=== PATIENT | male | born 1950 | race Caucasian/White ===

== ENCOUNTER 2019-02-23 10:03 | Emergency (ER) | payer BC, OTHER ==
--- OUTSIDE RECORDS SUMMARY | 2019-02-23 10:05 | XMS REPORT | Clinical Summary ---
:[address] [facility] Address [address] [place] [address] Care Team Providers Name Role Phone Neal Claros MD Primary Care Provider Allergies No Known Allergies Medications Medication Sig Dispensed Refills Start End Date Status Date levothyroxine Take 75 mcg by 0 Active (SYNTHROID, mouth Every morning LEVOTHROID) 75 MCG on an empty tabletIndications: stomach. Cirrhosis of liver without ascites, unspecified hepatic cirrhosis type (HCC), Fatty liver disease, nonalcoholic, Morbid obesity due to excess calories (HCC), Metabolic syndrome, Essential hypertension, Type 2 diabetes mellitus without complication, without long-term current use of insulin (HCC), Immunity status testing, Cancer screening losartan (COZAAR) Take 50 mg by mouth 0 Active 50 MG daily. tabletIndications: Cirrhosis of liver without ascites, unspecified hepatic cirrhosis type (HCC), Fatty liver disease, nonalcoholic, Morbid obesity due to excess calories (HCC), Metabolic syndrome, Essential hypertension, Type 2 diabetes mellitus without complication, without long-term current use of insulin (HCC), Immunity status testing, Cancer screening pantoprazole Take 40 mg by mouth 0 Active (PROTONIX) 40 MG daily . tabletIndications: Cirrhosis of liver without ascites, unspecified hepatic cirrhosis type (HCC), Fatty liver disease, nonalcoholic, Morbid obesity due to excess calories (HCC), Metabolic syndrome, Essential hypertension, Type 2 diabetes mellitus without complication, without long-term current use of insulin (HCC), Immunity status testing, Cancer screening acetaminophen Take 650 mg by 0 Active (TYLENOL) 325 MG mouth every 6 (six) tablet hours as needed for Pain. metFORMIN Take 500 mg by 0 Active (GLUCOPHAGE) 500 mouth 2 (two) times MG tablet daily with breakfast and dinner. atenolol 0 Active (TENORMIN) 100 MG 8 tablet atenolol Take 50 mg by mouth 0 05/26/20 Discontinued (TENORMIN) 50 MG daily. 18 tabletIndications: Cirrhosis of liver without ascites, unspecified hepatic cirrhosis type (HCC), Fatty liver disease, nonalcoholic, Morbid obesity due to excess calories (HCC), Metabolic syndrome, Essential hypertension, Type 2 diabetes mellitus without complication, without long-term current use of insulin (HCC), Immunity status testing, Cancer screening propranolol Take 20 mg by mouth 0 05/26/20 Discontinued (INDERAL) 20 MG daily . 18 tabletIndications: Cirrhosis of liver without ascites, unspecified hepatic cirrhosis type (HCC), Fatty liver disease, nonalcoholic, Morbid obesity due to excess calories (HCC), Metabolic syndrome, Essential hypertension, Type 2 diabetes mellitus without complication, without long-term current use of insulin (HCC), Immunity status testing, Cancer screening hepatitis A and B Inject 1 Syringe 1 vial 2 05/26/20 Discontinued vaccine, PF, 720 intramuscularly 8 18 Ermias unit -20 once for 1 dose At mcg/mL 0, 1, and 6 months. SuspIndications: Alcoholic cirrhosis of liver without ascites (HCC), Morbid obesity due to excess calories (HCC), Fatty liver disease, nonalcoholic, Cancer screening hepatitis A and B Inject 1 Syringe 1 vial 2 05/26/20 vaccine, PF, 720 intramuscularly 8 18 ERMIAS unit- 20 once for 1 dose At mcg/mL 0, 1, and 6 months. SuspIndications: Alcoholic cirrhosis of liver without ascites (HCC), Morbid obesity due to excess calories (HCC), Fatty liver disease, nonalcoholic, Cancer screening Active Problems Problem Noted Date Alcohol use 11/19/2018 Cirrhosis of liver without ascites 03/12/2017 Fatty liver disease, nonalcoholic 03/12/2017 Morbid obesity due to excess calories 03/12/2017 Metabolic syndrome 03/12/2017 Essential hypertension 03/12/2017 Type 2 diabetes mellitus 03/12/2017 Immunity status testing 03/12/2017 Cancer screening 03/12/2017 Encounters Date Type Specialty Care Team Description 12/09/2018 Hospital Encounter Radiology Megan Clark Kumar, MD non-alcoholic (HCC) 11/19/2018 Office Visit Hepatology Miguelangel Clarkun Cirrhosis, non-alcoholic ( HCC) (Primary Dx); MD Ariel Fatty liver disease, nonalcoholic; David Tsai Alcoholic cirrhosis of liver without ascites (HCC); ELIZABETH Bhatt Morbid obesity due to excess calories (HCC); Metabolic syndrome; Immunity status testing; Cancer screening; Alcohol use 06/23/2018 Hospital Encounter Radiology Megan Clark Cirrhosis, non- alcoholic (HCC); MD Ariel Fatty liver disease, nonalcoholic; Cancer screening; Metabolic syndrome 06/23/2018 Hospital Encounter Radiology Megan Clark Discomfort of chest wall; MD Ariel Cirrhosis of liver without ascites, unspecified hepatic cirrhosis type (HCC) 05/26/2018 Office Visit Hepatology EduardoMegan Cirrhosis of liver without ascites, unspecified hepatic cirrhosis type (HCC) (Primary Dx); MD Ariel Discomfort of chest wall; Reva Canales Portal hypertension (HCC); ANSELMO Bright Screening for cancer 05/26/2018 Orders Only Transplant Megan Clark Alcoholic cirrhosis of liver without ascites (HCC); Hepatology MD Ariel Morbid obesity due to excess calories (HCC); Fatty liver disease, nonalcoholic; Cancer screening 05/26/2018 Orders Only Hepatology Reva Canales Cirrhosis, non-alcoholic ( HCC) (Primary Dx); ANSELMO Bright Fatty liver disease, nonalcoholic; Cancer screening; Metabolic syndrome; Alcoholic cirrhosis of liver without ascites (HCC); Morbid obesity due to excess calories (HCC) after 02/22/2018 Family History Medical History Relation Name Comments Cancer Father Colon Diabetes Father Heart failure Father Hypertension Mother Relation Name Status Comments Father Mother Social History Tobacco Use Types Packs/Day Years Used Date Never Smoker Smokeless Tobacco: Never Used Alcohol Use Drinks/Week oz/Week Comments No Sex Assigned at Date Recorded Not on file Job Start Date Occupation Industry Not on file Not on file Not on file Travel History Travel Start Travel End No recent travel history available. Last Filed Vital Signs Vital Sign Reading Time Taken Blood Pressure 116/71 11/19/2018 12:25 PM CDT Pulse 75 11/19/2018 12:25 PM CDT Temperature 36.8 C (98.3 F) 11/19/2018 12:25 PM CDT Respiratory Rate 14 11/19/2018 12:25 PM CDT Oxygen Saturation 97% 11/19/2018 12:25 PM CDT Inhaled Oxygen Concentration - - Weight 144.2 kg (317 lb 12.8 oz) 11/19/2018 12:25 PM CDT Height 188 cm (6' 2") 11/19/2018 12:25 PM CDT Body Mass Index 40.8 11/19/2018 12:25 PM CDT Plan of Treatment Date Type Specialty Care Team Description 05/24/2019 Office Visit Hepatology Resource, [facility] E Implants Implanted Type Area Telephone Service Representative Device Shelf Expiration Model / Identifier Date Serial / Lot Micronester Embolization Coil [employer] 11/27/2021 / Implanted: Qty: 1 on 05/07/2017 by Adal Martin MD [id number] / [id number] Micronester Embolization Coil [employer] 11/27/2021 / Implanted: Qty: 1 on 05/07/2017 by Adal Martin MD [id number] / [id number] [employer]ronester Embolization Coil [employer] 01/22/2022 / Implanted: Qty: 1 on 05/07/2017 by Adal Martin MD [id number] / [id number] [employer]ester Embolization Coil [employer] 01/13/2022 / Implanted: Qty: 1 on 05/07/2017 by Adal Martin MD [id number] / [id number] Procedures Procedure Name Priority Date/Time Associated Comments Diagnosis CT ABDOMEN Routine 12/09/2018 9:03 Cirrhosis, Results for this WITH/WITHOUT CONTRAST AM CDT non-alcoholic (HCC) procedure are in the results section. CBC W/PLT COUNT & Routine 11/19/2018 1:09 Cirrhosis, Results for this AUTO DIFFERENTIAL PM CDT non-alcoholic (HCC) procedure are in the results section. ALPHA FETOPROTEIN Routine 11/19/2018 1:09 Cirrhosis, Results for this (AFP), TUMOR MARKER PM CDT non-alcoholic (HCC) procedure are in the results section. PROTHROMBIN TIME/INR Routine 11/19/2018 1:09 Cirrhosis, Results for this PM CDT non-alcoholic (HCC) procedure are in the results section. CBC W/PLT COUNT & Routine 11/19/2018 1:09 Cirrhosis, Results for this AUTO DIFFERENTIAL PM CDT non-alcoholic (HCC) procedure are in the results section. HEPATIC FUNCTION Routine 11/19/2018 1:09 Cirrhosis, Results for this PANEL PM CDT non-alcoholic (HCC) procedure are in the results section. BASIC METABOLIC PANEL Routine 11/19/2018 1:09 Cirrhosis, Results for this (7) PM CDT non-alcoholic (HCC) procedure are in the results section. CT CHEST WITH IV Routine 06/23/2018 12:00 Results for this CONTRAST PM RESEARCH SUBJECT procedure are in the results section. CT ABDOMEN Routine 06/23/2018 12:00 Cirrhosis, Results for this WITH/WITHOUT CONTRAST PM RESEARCH SUBJECT non-alcoholic (HCC) procedure are in Fatty liver the results disease, section. nonalcoholic Cancer screening Metabolic syndrome POCT-CREATININE Routine 06/23/2018 11:52 Results for this AM RESEARCH SUBJECT procedure are in the results section. CBC W/PLT COUNT & Routine 05/26/2018 11:08 Alcoholic cirrhosis Results for this AUTO DIFFERENTIAL AM RESEARCH SUBJECT of liver without procedure are in ascites (HCC) the results Morbid obesity due section. to excess calories (HCC) Fatty liver disease, nonalcoholic Cancer screening ALPHA FETOPROTEIN Routine 05/26/2018 11:08 Alcoholic cirrhosis Results for this (AFP), TUMOR MARKER AM RESEARCH SUBJECT of liver without procedure are in ascites (HCC) the results Morbid obesity due section. to excess calories (HCC) Fatty liver disease, nonalcoholic Cancer screening PROTHROMBIN TIME/INR Routine 05/26/2018 11:08 Alcoholic cirrhosis Results for this AM RESEARCH SUBJECT of liver without procedure are in ascites (HCC) the results Morbid obesity due section. to excess calories (HCC) Fatty liver disease, nonalcoholic Cancer screening CBC W/PLT COUNT & Routine 05/26/2018 11:08 Alcoholic cirrhosis Results for this AUTO DIFFERENTIAL AM RESEARCH SUBJECT of liver without procedure are in ascites (HCC) the results Morbid obesity due section. to excess calories (HCC) Fatty liver disease, nonalcoholic Cancer screening HEPATIC FUNCTION Routine 05/26/2018 11:08 Alcoholic cirrhosis Results for this PANEL AM RESEARCH SUBJECT of liver without procedure are in ascites (HCC) the results Morbid obesity due section. to excess calories (HCC) Fatty liver disease, nonalcoholic Cancer screening BASIC METABOLIC PANEL Routine 05/26/2018 11:08 Alcoholic cirrhosis Results for this (7) AM RESEARCH SUBJECT of liver without procedure are in ascites (HCC) the results Morbid obesity due section. to excess calories (HCC) Fatty liver disease, nonalcoholic Cancer screening after 02/22/[address] abdomen with/without contrast (12/09/2018 9:03 AM CDT)Only the most recent of2 resultswithin the time period is included. Specimen Narrative Performed At FINAL REPORT RIS ABDOMINAL AND PELVIS CT DATED 12/09/2018 COMPARISON: June 23, 2018 CLINICAL INFORMATION:cirrhosis assess for HCC TECHNIQUE:Axial images of the abdomen and pelvis were obtained from diaphragm to the pubic symphysis with and without intravenous contrast. This exam was performed according to our departmental dose-optimization program, which includes automated exposure control, adjustment of the mA and/or kV according to patient size and/or use of interactive reconstruction technique. COMMENT: Liver is cirrhotic in appearance with irregular margins. No abnormal enhancement or suspicious mass is seen in the liver. Spleen is enlarged measuring 14.3 x 7.2 x 12 cm. The splenic, superior mesenteric, portal, and hepatic veins are patent. Main portal vein measures 1.6 cm in diameter. Enlarged collateral veins are seen in the splenic hilum. Paraesophageal varices and splenorenal shunts are seen. Gallbladder is surgically absent. No biliary dilatation is noted. Pancreas and adrenals are unremarkable. Both kidneys are normal in size and functioning with bilateral excretion. No hydronephrosis, hydroureter, urolithiasis is seen. The small and large bowel are unremarkable. Appendix is noted visualized. Periumbilical ventral hernia is present with herniation a segment of the omentum. No mass, adenopathy or ascites is present. IMPRESSION: 1. Cirrhosis with splenomegaly and portal hypertension. 2. No suspicious hepatic mass. 3. Periumbilical ventral hernia with herniation a segment of the omentum. Signed: Rufina Hart MD Report Verified Date/Time:12/09/2018 09:48:18 Reading Location: [facility] C013Y CT Body Reading Room Procedure Note Interface, External Ris In - 12/09/2018 9:50 AM CDT FINAL REPORT ABDOMINAL AND PELVIS CT DATED 12/09/2018 COMPARISON: June 23, 2018 CLINICAL INFORMATION: cirrhosis assess for HCC TECHNIQUE: Axial images of the abdomen and pelvis were obtained from diaphragm to the pubic symphysis with and without intravenous contrast. This exam was performed according to our departmental dose-optimization program, which includes automated exposure control, adjustment of the mA and/or kV according to patient size and/or use of interactive reconstruction technique. COMMENT: Liver is cirrhotic in appearance with irregular margins. No abnormal enhancement or suspicious mass is seen in the liver. Spleen is enlarged measuring 14.3 x 7.2 x 12 cm. The splenic, superior mesenteric, portal, and hepatic veins are patent. Main portal vein measures 1.6 cm in diameter. Enlarged collateral veins are seen in the splenic hilum. Paraesophageal varices and splenorenal shunts are seen. Gallbladder is surgically absent. No biliary dilatation is noted. Pancreas and adrenals are unremarkable. Both kidneys are normal in size and functioning with bilateral excretion. No hydronephrosis, hydroureter, urolithiasis is seen. The small and large bowel are unremarkable. Appendix is noted visualized. Periumbilical ventral hernia is present with herniation a segment of the omentum. No mass, adenopathy or ascites is present. IMPRESSION: 1. Cirrhosis with splenomegaly and portal hypertension. 2. No suspicious hepatic mass. 3. Periumbilical ventral hernia with herniation a segment of the omentum. Signed: Rufina Hart MD Report Verified Date/Time: 12/09/2018 09:48:18 Reading Location: [facility] B1 C013Y CT Body Reading Room Performing Organization Address City/State/Zipcode Phone Number [facility] CBC with platelet count + automated diff (11/19/2018 1:09 PM CDT)Only the most recent of2 resultswithin the time period is included. WBC 4.5 3.5 - 10.5 K/L [facility] RBC 3.82 (L) 4.63 - 6.08 M/L [facility] Hemoglobin 14.4 13.7 - 17.5 GM/DL [facility] Hematocrit 41.2 40.1 - 51.0 % [facility] MCV 107.9 (H) 79.0 - 92.2 fL [facility] MCH 37.7 (H) 25.7 - 32.2 pg [facility] MCHC 35.0 32.3 - 36.5 GM/DL [facility] RDW 12.7 11.6 - 14.4 % [facility] Platelets 92 (L) 150 - 450 K/CU MM [facility] MPV 10.0 9.4 - 12.4 fL [facility] nRBC 0 0 - 0 /100 WBC [facility] % Neutros 65 % [facility] % Lymphs 22 % [facility] % Monos 9 % [facility] % Eos 4 % [facility] % Baso 1 % [facility] # Neutros 2.91 1.78 - 5.38 K/L [facility] # Lymphs 0.99 (L) 1.32 - 3.57 K/L [facility] # Monos 0.39 0.30 - 0.82 K/L [facility] # Eos 0.17 0.04 - 0.54 K/L [facility] # Baso 0.03 0.01 - 0.08 K/L [facility] Immature 0 0 - 1 % [facility] Specimen Blood Performing Organization Address City/State/Zipcode Phone Number [address] [address] CENTER Alpha fetoprotein (AFP), tumor marker (11/19/2018 1:09 PM CDT)Only the most recent of2 resultswithin the time period is included. Alpha-Fetoprotein 7.5 <10.0 ng/mL [facility] Specimen Blood Performing Organization Address City/State/Zipcode Phone Number [address] [address] CENTER Pro-time/INR (11/19/2018 1:09 PM CDT)Only the most recent of2 resultswithin the time period is included. Protime 15.4 (H) 11.7 - 14.7 seconds [facility] INR 1.3 <=5.9 [facility] Specimen Blood Narrative Performed At RECOMMENDED COUMADIN/WARFARIN INR THERAPY [facility] RANGES STANDARD DOSE: 2.0 - 3.0 Includes: PROPHYLAXIS for venous thrombosis, systemic embolization; TREATMENT for venous thrombosis and/or pulmonary embolus. HIGH RISK: Target INR is 2.5-3.5 for patients with mechanical heart valves. Performing Organization Address [facility] Phone Number [address] [address] [place] Hepatic function panel (11/19/2018 1:09 PM CDT)Only the most recent of2 resultswithin the time period is included. Protein, Total 7.6 6.0 - 8.3 gm/dL [facility] Albumin 3.5 3.5 - 5.0 g/dL [facility] Total Bilirubin 2.1 (H) 0.2 - 1.2 mg/dL [facility] Bilirubin, Direct 0.8 (H) 0.1 - 0.5 mg/dL [facility] Alkaline Phosphatase 103 40 - 150 U/L [facility] AST 27 5 - 34 U/L [facility] ALT 21 6 - 55 U/L [facility] Specimen Blood Narrative Performed At Specimen slightly icteric [facility] Performing Organization Address City/[facility]/Zipcode Phone Number [facility] [address] [place] [phone] CENTER Basic Metabolic Panel (11/19/2018 1:09 PM CDT)Only the most recent of2 resultswithin the time period is included. Sodium 137 136 - 145 meq/L [facility] Potassium 4.1 3.5 - 5.1 meq/L [facility] Chloride 104 98 - 107 meq/L [facility] CO2 26 22 - 29 meq/L [facility] BUN 14 7 - 21 mg/dL [facility] Creatinine 1.20 0.57 - 1.25 mg/dL [facility] Glucose 324 (H) 70 - 105 mg/dL [facility] Calcium 9.3 8.4 - 10.2 mg/dL [facility] EGFR 61Comment: ESTIMATED GFR IS mL/min/1.73 sq m [facility] NOT ACCURATE CREATININE [facility] CENTER CLEARANCE IN PREDICTING GLOMERULAR FILTRATION RATE. ESTIMATED GFR IS NOT APPLICABLE FOR DIALYSIS PATIENTS. Specimen Blood Narrative Performed At Specimen slightly icteric [facility] Performing Organization Address City/State/Zipcode Phone Number [facility] [address] [place] [address] chest with IV contrast (06/23/2018 12:00 PM RESEARCH SUBJECT) Specimen Narrative Performed At FINAL REPORT [employer] INDICATION: 68-year-old male with chest pain and upper back pain. Patient also has a history of cirrhosis, surveillance for hepatocellular carcinoma. COMPARISON: Abdomen MR exams September 25, 2017 and March 12, 2017 TECHNIQUE: CT of the Chest WITH intravenous contrast. CT of the Abdomen WITHOUT and WITH intravenous contrast. Enteric contrast was not used. The exam was performed according to our department dose-optimization protocol, which includes automated exposure control, adjustments of mA and kV according to patient size. Iterative reconstructions are also sometimes employed. FINDINGS: THORAX: There is no mediastinal, hilar, or axillary lymphadenopathy. No suspicious pulmonary nodule or mass is demonstrated. No pleural effusion or suspicious pleural nodularity. Heart is normal in size and there is no pericardial effusion. Thyroid gland and esophagus are unremarkable. ABDOMEN: The liver is cirrhotic. No liver mass is demonstrated. No portal vein, superior mesenteric vein, or splenic vein thrombosis is demonstrated. There are large varices between the fundus and the medial pole of the spleen communicating with the left renal vein, splenorenal shunt. Smaller lower esophageal varices are also noted. There is no ascites. Spleen measures 16 cm coronal long axis. There is no upper abdominal lymphadenopathy or free fluid. Patient is status post cholecystectomy. There is no biliary ductal dilatation. Pancreas, adrenal glands, and kidneys are unremarkable. Diverticuli of the distal left colon noted, bowel loops otherwise unremarkable. There is a periumbilical fat-containing hernia with the fascial defect measuring 2 cm and the hernia itself measuring 7 cm. BONES: No suspicious osseous lesion is demonstrated. There is lumbar spondylosis including lower lumbar spinal stenosis. There is no compression fracture. IMPRESSION: No acute abnormality of the thorax. Specifically, no thoracic compression fracture. Cirrhosis without evidence of hepatocellular carcinoma. Large fat-containing periumbilical hernia. Lumbar spondylosis including lower lumbar spinal stenosis. Signed: Kennedy Tavares MD Report Verified Date/Time:06/23/2018 14:26:12 Reading Location: [address] Body Reading Room Procedure Note Interface, External Ris In - 06/23/2018 2:28 PM RESEARCH SUBJECT FINAL REPORT INDICATION: 68-year-old male with chest pain and upper back pain. Patient also has a history of cirrhosis, surveillance for hepatocellular carcinoma. COMPARISON: Abdomen MR exams September 25, 2017 and March 12, 2017 TECHNIQUE: CT of the Chest WITH intravenous contrast. CT of the Abdomen WITHOUT and WITH intravenous contrast. Enteric contrast was not used. The exam was performed according to our department dose-optimization protocol, which includes automated exposure control, adjustments of mA and kV according to patient size. Iterative reconstructions are also sometimes employed. FINDINGS: THORAX: There is no mediastinal, hilar, or axillary lymphadenopathy. No suspicious pulmonary nodule or mass is demonstrated. No pleural effusion or suspicious pleural nodularity. Heart is normal in size and there is no pericardial effusion. Thyroid gland and esophagus are unremarkable. ABDOMEN: The liver is cirrhotic. No liver mass is demonstrated. No portal vein, superior mesenteric vein, or splenic vein thrombosis is demonstrated. There are large varices between the fundus and the medial pole of the spleen communicating with the left renal vein, splenorenal shunt. Smaller lower esophageal varices are also noted. There is no ascites. Spleen measures 16 cm coronal long axis. There is no upper abdominal lymphadenopathy or free fluid. Patient is status post cholecystectomy. There is no biliary ductal dilatation. Pancreas, adrenal glands, and kidneys are unremarkable. Diverticuli of the distal left colon noted, bowel loops otherwise unremarkable. There is a periumbilical fat-containing hernia with the fascial defect measuring 2 cm and the hernia itself measuring 7 cm. BONES: No suspicious osseous lesion is demonstrated. There is lumbar spondylosis including lower lumbar spinal stenosis. There is no compression fracture. IMPRESSION: No acute abnormality of the thorax. Specifically, no thoracic compression fracture. Cirrhosis without evidence of hepatocellular carcinoma. Large fat-containing periumbilical hernia. Lumbar spondylosis including lower lumbar spinal stenosis. Signed: Kennedy Tavares MD Report Verified Date/Time: 06/23/2018 14:26:12 Reading Location: [facility] C013Y CT Body Reading Room Performing Organization Address City/State/Zipcode Phone Number [facility] POC-Creatinine (06/23/2018 11:52 AM RESEARCH SUBJECT) POC-Creatinine 0.9Comment: TESTED AT 0.6 - 1.3 mg/dL [facility] [id number] [facility] [id number] POC-EGFR 84 mL/min/1.73M2 [facility] Specimen Blood Performing Organization Address City/State/Zipcode Phone Number [facility] [address] [place] [address] [phone] CENTER after 02/22/2018 Insurance Payer Benefit Plan / Subscriber ID Type Phone Address Group BLUE CROSS/[employer]UE [employer] FED xxxxxxxxx O [phone] [address] [place] [address]
--- NOTE | 2019-02-23 11:08 | RAD REPORT ---
EXAM DESCRIPTION: RAD - Tib Fib Right - 02/23/2019 11:00 am CLINICAL HISTORY: Persistent right leg pain following trauma a few weeks earlier COMPARISON: None. FINDINGS: No fracture is identified. There is no dislocation or periosteal reaction noted. No acute destructive bone process identified. Degenerative changes are present and the ankle joint the patient has small spurs at the plantar and Achilles tendon attachments. Spurs are present at the quadriceps attachment to the patella and the origin of the patella tendon. No significant knee joint finding see n on plain film. Subcutaneous fatty tissues are edematous along the lateral to anterior tissues proximally and circumf erential edema seen near the ankle. Baseline the patient is unknown. No air or foreign body in the soft tissues. IMPRESSION: No acute bone findings seen. Patient has degenerative change at the ankle joint. Prominent subcutaneous fatty tissue edema with baseline for the patient unknown. No air or foreign julisa dy seen.
--- NOTE | 2019-02-23 11:47 | RAD REPORT ---
EXAM DESCRIPTION: US - Extremity Venous Uni Ltd - 02/23/2019 11:11 am CLINICAL HISTORY: Right leg pain and swelling COMPARISON: February 18 TECHNIQUE: Real-time sonographic evaluation of the right lower extremity deep venous systems was per formed. FINDINGS: Normal compressibility, flow augmentation, phasic flow and spontaneous flow are identified in the right lower extremity common femoral, superficial femoral, popliteal and posterior tibial vei ns. No intraluminal filling defects seen. IMPRESSION: No DVT in the right lower extremity.
--- NOTE | 2019-02-23 11:51 | ER ---
Nurse's Notes [facility] Name: Solo Lin Jr Age: 69 yrs Sex: Male : 1950 Arrival Date: 02/23/2019 Time: 10:07 Bed 7 Private MD: Neal Claros T Diagnosis: Pain in right lower leg Presentation: 02/23 10:22 Presenting complaint: Presenting complaint: Patient states: fall off 8 inch porch a few iw weeks ago, pain to right leg/ankle since then, had Xray and US done and was negative, still having pain behind right knee and right calf, leg locked up on him yesterday and this morning. 10:22 Transition of care: patient was not received from another setting of care. Onset of iw symptoms was January 04, 2019. Risk Assessment: Do you want to hurt yourself or someone else? Patient reports no desire to harm self or others. Initial Sepsis Screen: Does the patient meet any 2 criteria? No. Patient's initial sepsis screen is negative. Does the patient have a suspected source of infection? No. Patient's initial sepsis screen is negative. Care prior to arrival: None. 10:22 Method Of Arrival: Wheelchair iw 10:22 Acuity: GAVIN 3 iw Triage Assessment: 10:25 General: Appears in no apparent distress. comfortable, obese, Behavior is calm, bp cooperative, appropriate for age. Pain: Complains of pain in right calf and posterior aspect of right knee. EENT: No deficits noted. Neuro: No deficits noted. Cardiovascular: No deficits noted. Respiratory: No deficits noted. GI: No signs and/or symptoms were reported involving the gastrointestinal system. : No signs and/or symptoms were reported regarding the genitourinary system. Derm: No deficits noted. Musculoskeletal: No deficits noted. Historical: - Allergies: 10:29 No Known Allergies; iw - Home Meds: 10:29 levothyroxine 75 mcg tab 1 tab once daily [Active]; pantoprazole oral oral once daily iw [Active]; atenolol 100 mg Oral tab 1 tab once daily [Active]; losartan 25 mg oral tab 1 tab once daily [Active]; metformin 500 mg Oral Tb24 2 times per day [Active]; Vitamin B-12 Oral daily [Active]; escitalopram oxalate 20 mg oral tab 1 tab once daily [Active]; - PMHx: 10:29 Gout; Hypothyroidism; Migraines; NIDDM; PUD; iw - PSHx: 10:29 Cholecystectomy; Appendectomy; iw - Immunization history:: Adult Immunizations up to date. - Family history:: not pertinent. - Ebola Screening: : Patient negative for fever greater than or equal to 101.5 degrees Fahrenheit, and additional compatible Ebola Virus Disease symptoms Patient denies exposure to infectious person Patient denies travel to an Ebola-affected area in the 21 days before illness onset No symptoms or risks identified at this time. - Social history:: Smoking status: Patient/guardian denies using tobacco. - Hospitalizations: : No recent hospitalization is reported. Screenin:37 Abuse screen: Denies threats or abuse. Denies injuries from another. Nutritional bp screening: No deficits noted. Tuberculosis screening: No symptoms or risk factors identified. Fall Risk None identified. Assessment: 10:25 General: SEE TRIAGE NOTE. bp 10:43 Reassessment: XRAY AT B/S. bp 12:04 Reassessment: PT D/C HOME AMBULATORY, DX WITH MUSCULOSKELETAL PAIN. bp Vital Signs: 10:29 BP 109 / 53; Pulse 72; Resp 16; Temp 98.7; Pulse Ox 97% on R/A; iw 10:36 BP 96 / 46; Pulse 67; Resp 16; Pulse Ox 95% ; bp 12:05 BP 112 / 60; Pulse 65; Resp 16; Pulse Ox 94% ; bp ED Course: 10:07 Patient arrived in ED. mr 10:07 Neal Claros MD is Private Physician. mr 10:09 Selvin Vu, SHAYNA is Primary Nurse. bp 10:09 Ayush Martines MD is Attending Physician. rn 10:24 Triage completed. iw 10:30 Arm band placed on. iw 10:38 Patient has correct armband on for positive identification. Bed in low position. Call bp light in reach. Side rails up X2. 10:52 XRAY Tib Fib RIGHT In Process Unspecified. EDMS 11:13 Extremity Venous Uni Ltd US In Process Unspecified. EDMS 12:05 No provider procedures requiring assistance completed. Patient did not have IV access bp during this emergency room visit. Administered Medications: No medications were administered Outcome: 11:50 Discharge ordered by . rn 12:05 Discharged to home ambulatory. bp 12:05 Condition: stable 12:05 Discharge instructions given to patient, Instructed on discharge instructions, follow up and referral plans. Demonstrated understanding of instructions, follow-up care. 12:16 Patient left the ED. bp Signatures: Dispatcher [employer] JAIMIE Nick Soila Vesna Hope, RN Ayush Rincon MD MD rn Peltier, Brian, RN RN bp Corrections: (The following items were deleted from the chart) 10:24 10:22 Presenting complaint: red moon
--- NOTE | 2019-02-23 11:52 | EDPHYS ---
Physician Documentation [facility] Name: Solo Lin Jr Age: 69 yrs Sex: Male : 1950 Arrival Date: 02/23/2019 Time: 10:07 Bed 7 Private MD: Neal Claros T ED Physician Ayush Martines HPI: 02/23 10:12 This 69 yrs old Male presents to ER via Unassigned with complaints of Leg rn Pain. 10:22 The patient presents with an injury, pain. The complaints affect the posterior aspect rn of right knee and right calf. Onset: The symptoms/episode began/occurred 4 week(s) ago. Modifying factors: The symptoms are alleviated by remaining still, the symptoms are aggravated by movement, weight bearing. Severity of symptoms: At their worst the symptoms were mild, in the emergency department the symptoms are unchanged. The patient has not experienced similar symptoms in the past. The patient has been recently seen by a physician:. Reports injury when fell off porch 4 weeks ago, reports initial injury was left thigh/leg, but as time went on right leg began to give him problems. Seen by PCP last week with negative xray and ultrasound for DVT. Reports still hurting with bending knee and walking, today right leg gave out due to pain. . Historical: - Allergies: 10:29 No Known Allergies; iw - Home Meds: 10:29 levothyroxine 75 mcg tab 1 tab once daily [Active]; pantoprazole oral oral once daily iw [Active]; atenolol 100 mg Oral tab 1 tab once daily [Active]; losartan 25 mg oral tab 1 tab once daily [Active]; metformin 500 mg Oral Tb24 2 times per day [Active]; Vitamin B-12 Oral daily [Active]; escitalopram oxalate 20 mg oral tab 1 tab once daily [Active]; - PMHx: 10:29 Gout; Hypothyroidism; Migraines; NIDDM; PUD; iw - PSHx: 10: Cholecystectomy; Appendectomy; iw - Immunization history:: Adult Immunizations up to date. - Family history:: not pertinent. - Ebola Screening: : Patient negative for fever greater than or equal to 101.5 degrees Fahrenheit, and additional compatible Ebola Virus Disease symptoms Patient denies exposure to infectious person Patient denies travel to an Ebola-affected area in the 21 days before illness onset No symptoms or risks identified at this time. - Social history:: Smoking status: Patient/guardian denies using tobacco. - Hospitalizations: : No recent hospitalization is reported. ROS: 10:22 Constitutional: Negative for fever, chills, and weight loss, Back: Negative for injury rn and pain, : Negative for injury, bleeding, discharge, and swelling, MS/Extremity: + RLE pain and injury Skin: Negative for injury, rash, and discoloration, Neuro: Negative for headache, weakness, numbness, tingling, and seizure. Exam: 10:22 Constitutional: This is a well developed, well nourished patient who is awake, alert, rn and in no acute distress. MS/ Extremity: Pulses equal, no cyanosis. Neurovascular intact. Mild painful ROM when flexing right knee, no gross deformity, no bony tenderness or limited ROM left leg. Rigth foot and knee without abnormality. RLE 1cm greater circumference compared to LLE. Mild tenderness hamstring tendons. Vital Signs: 10:29 BP 109 / 53; Pulse 72; Resp 16; Temp 98.7; Pulse Ox 97% on R/A; iw 10:36 BP 96 / 46; Pulse 67; Resp 16; Pulse Ox 95% ; bp 12:05 BP 112 / 60; Pulse 65; Resp 16; Pulse Ox 94% ; bp MDM: 10:09 Patient medically screened. rn 11:49 Differential diagnosis: closed fracture, contusion, tendonitis. Data reviewed: vital rn signs, nurses notes, radiologic studies, and as a result, I will discharge patient. Counseling: I had a detailed discussion with the patient and/or guardian regarding: the historical points, exam findings, and any diagnostic results supporting the discharge/admit diagnosis, radiology results, the need for outpatient follow up, to return to the emergency department if symptoms worsen or persist or if there are any questions or concerns that arise at home. Special discussion: I discussed with the patient/guardian in detail that at this point there is no indication for admission to the hospital. It is understood, however, that if the symptoms persist or worsen the patient needs to return immediately for re-evaluation. Further emergent ED testing is not indicated at this point in time. I discussed with the patient/guardian in detail the need to arrange with the PCP or specialist further outpatient testing, MRI. 02/23 10:22 Order name: XRAY Tib Fib RIGHT; Complete Time: 11:11 rn 02/23 10:22 Order name: Extremity Venous Uni Ltd US; Complete Time: 11:49 rn Administered Medications: No medications were administered Disposition: 02/23/19 11:50 Discharged to Home. Impression: Pain in right lower leg. - Condition is Stable. - Discharge Instructions: Musculoskeletal Pain. - Medication Reconciliation Form, Thank You Letter, Antibiotic Education, Prescription Opioid Use form. - Follow up: Private Physician; When: As needed; Reason: Recheck today's complaints, Re-evaluation by your physician. - Problem is an ongoing problem. - Symptoms have improved. Signatures: Dispatcher [employer] EDMS Vesna Isaacs RN RN iw Nieto, Roman, MD MD rn Peltier, Brian, RN RN bp Corrections: (The following items were deleted from the chart) 12:16 11:50 02/23/2019 11:50 Discharged to Home. Impression: Pain in right lower leg. bp Condition is Stable. Forms are Medication Reconciliation Form, Thank You Letter, Antibiotic Education, Prescription Opioid Use. Follow up: Private Physician; When: As needed; Reason: Recheck today's complaints, Re-evaluation by your physician. Problem is an ongoing problem. Symptoms have improved. rn
== END 2019-02-23 12:16 | disposition home or self-care (01) ==
LOC: ER 10:03
DX: M79.661 Pain in right lower leg (principal); E03.9 Hypothyroidism, unspecified; E11.9 Type 2 diabetes mellitus without complications
CPT/HCPCS: 93971; 99283

== ENCOUNTER 2021-10-18 22:29 | Emergency (ER) | payer OTHER, BC ==
--- OUTSIDE RECORDS SUMMARY | 2021-10-18 22:34 | XMS REPORT | Continuity of Care Document ---
:1950 Author Organization [facility] t Address [address] [place] [address] Care Team Providers Name Role Phone DARWIN STARKS Primary Care Physician Unavailable NUHA QUEEN Attending Clinician Unavailable DANNY HE Attending Clinician Unavailable DANNY HE Admitting Clinician Unavailable Payers Payer Name Policy Type Policy Number Effective Date Expiration Date S [facility] FED [id number] 1988 00:00:00 Problems This patient has no known problems. Allergies, Adverse Reactions, Alerts Allergy Allergy Status Severity Reaction(s) Onset Inactive Treating Comm ents Source Name Type Date Date Clinician NO KNOWN Allergy Active [facility] S Medications This patient has no known medications. Procedures This patient has no known procedures. Encounters Start End Encounter Admission Attending Care Care Encounter Source Date/Time Date/Time Type Type Clinicians Facility Department ID 2020-07-13 2020-07-13 Outpatient [facility] [id number] SLE 00:00:00 00:00:00 2020-01-10 2020-01-10 Outpatient [facility] [id number] SLE 00:00:00 00:00:00 Results Test Description Test Time Test Comments Results Result Comments Source ALPHA FETOPROTEIN (AFP), TUMOR MARKER 2019-07-08 17:13:00 Test Item Value Reference Range Interpretation Comme nts ALPHA-FETOPROTEIN (BEAKER) (test code = 1094) 8.1 ng/mL <10.0 BASIC METABOLIC [id number] 16:48:00 Test Item Value Reference Range Interpretation Comments SODIUM (BEAKER) 140 meq/L 136-145 (test code = 381) POTASSIUM (BEAKER) 3.8 meq/L 3.5-5.1 Specimen slightly (test code = 379) hemolyzed CHLORIDE (BEAKER) 105 meq/L 98-107 (test code = 382) CO2 (BEAKER) (test 25 meq/L 22-29 code = 355) BLOOD UREA NITROGEN 13 mg/dL 7-21 (BEAKER) (test code = 354) CREATININE (BEAKER) 1.13 mg/dL 0.57-1.25 Specimen slightly (test code = 358) hemolyzed GLUCOSE RANDOM 290 mg/dL 70-105 H (BEAKER) (test code = 652) CALCIUM (BEAKER) 9.5 mg/dL 8.4-10.2 (test code = 697) EGFR (BEAKER) (test 65 mL/min/1.73 ESTIMA JOSE M GFR IS code = 1092) sq m NOT ACCURATE CREATININE CLEARANCE IN PREDICTING GLOMERULAR FILTRATION RATE . ESTIMATED GFR I S NOT APPLICABLE FOR DIALYSIS PATIEN TS. HEPATIC FUNCTION [id number] 16:48:00 Test Item Value Reference Range Interpretation Comments TOTAL PROTEIN (BEAKER) 8.0 gm/dL 6.0-8.3 Speci men slightly (test code = 770) hemolyzed ALBUMIN (BEAKER) (test 3.5 g/dL 3.5-5.0 Speci men slightly code = 1145) hemolyzed BILIRUBIN TOTAL 1.6 mg/dL 0.2-1.2 H Specimen sli ghtly (BEAKER) (test code = hemoly zed 377) BILIRUBIN DIRECT 0.7 mg/dL 0.1-0.5 H Specimen sl ightly (BEAKER) (test code = hemoly zed 706) ALKALINE PHOSPHATASE 120 U/L 40-150 (BEAKER) (test code = 346) AST (SGOT) (BEAKER) 34 U/L 5-34 Specimen slightly (test code = 353) hemolyzed ALT (SGPT) (BEAKER) 19 U/L 6-55 Specimen slightly (test code = 347) hemolyzed CBC W/PLT COUNT & AUTO [id number] 16:39:00 Test Item Value Reference Range Interpretation Comments WHITE BLOOD CELL COUNT (BEAKER) 5.4 K/ L 3.5-10.5 (test code = 775) RED BLOOD CELL COUNT (BEAKER) 3.99 M/ L 4.63-6.08 L (test code = 761) HEMOGLOBIN (BEAKER) (test code = 15.1 GM/DL 13.7-17.5 410) HEMATOCRIT (BEAKER) (test code = 42.8 % 40.1-51.0 411) MEAN CORPUSCULAR VOLUME (BEAKER) 107.3 fL 79.0-92.2 H (test code = 753) MEAN CORPUSCULAR HEMOGLOBIN 37.8 pg 25.7-32.2 H (BEAKER) (test code = 751) MEAN CORPUSCULAR HEMOGLOBIN CONC 35.3 GM/DL 32.3-36.5 (BEAKER) (test code = 752) RED CELL DISTRIBUTION WIDTH 12.9 % 11.6-14.4 (BEAKER) (test code = 412) PLATELET COUNT (BEAKER) (test 113 K/CU MM 150-450 L code = 756) MEAN PLATELET VOLUME (BEAKER) 9.8 fL 9.4-12.4 (test code = 754) NUCLEATED RED BLOOD CELLS 0 /100 WBC 0-0 (BEAKER) (test code = 413) NEUTROPHILS RELATIVE PERCENT 64 % (BEAKER) (test code = 429) LYMPHOCYTES RELATIVE PERCENT 21 % (BEAKER) (test code = 430) MONOCYTES RELATIVE PERCENT 9 % (BEAKER) (test code = 431) EOSINOPHILS RELATIVE PERCENT 4 % (BEAKER) (test code = 432) BASOPHILS RELATIVE PERCENT 1 % (BEAKER) (test code = 437) NEUTROPHILS ABSOLUTE COUNT 3.46 K/ L 1.78-5.38 (BEAKER) (test code = 670) LYMPHOCYTES ABSOLUTE COUNT 1.16 K/ L 1.32-3.57 L (BEAKER) (test code = 414) MONOCYTES ABSOLUTE COUNT (BEAKER) 0.50 K/ L 0.30-0.82 (test code = 415) EOSINOPHILS ABSOLUTE COUNT 0.22 K/ L 0.04-0.54 (BEAKER) (test code = 416) BASOPHILS ABSOLUTE COUNT (BEAKER) 0.06 K/ L 0.01-0.08 (test code = 417) IMMATURE GRANULOCYTES-RELATIVE 0 % 0-1 PERCENT (BEAKER) (test code = 2801) PROTHROMBIN [id number] 16:36:00 Test Item Value Reference Range Interpretation Comments PROTIME (BEAKER) (test code = 15.1 seconds 11.9-14.2 H 759) INR (ZACKARY) (test code = 370) 1.2 <=5.9 Effective 12/02/2018: PT Reference Range ChangeNew: 11.9-14.2 Previous: 11.7- 14.7RECOMMENDED COUMADIN/WARFARIN INR THERAPY RANGESSTANDARD DOSE: 2.0-3.0 Includes: PROPHYLAXIS for venous thrombosis, systemic embolization; TREATMENT for venous thrombosis and/or pulmonary embolus.HIGH RISK: Target INR is2.5-3.5 for patients wiht mechanical heart valves.CT, ABDOMEN, [id number] 09:48:00Cirrhosis assess for HCCTriple Phase liver protocolFINAL REPORT ABDOMINAL AND PELVIS CT DATED 12/09/2018 [...] hepatic veins are patent. Main portal vein measures1.6 cm in diameter. Enlarged collateral veins are [...] IMPRESSION: 1. Cirrhosis with splenomegaly and portal hypertension.2. No suspicious hepatic mass.3. Periumbilical ventral hernia with herniation a segment of the omentum. Signed: Rufina Hart MDReport Verified Date/Time: 12/09/2018 09:48:18 Reading Location: [facility] B1 [id number] CT Body Reading Room ALPHA FETOPROTEIN (AFP), TUMOR [id number] 14:26:00 Test Item Value Reference Range Interpretation Comments ALPHA-FETOPROTEIN (BEAKER) (test 7.5 ng/mL <10.0 code = 1094) BASIC METABOLIC [id number] 14:16:00 Test Item Value Reference Range Interpretation Comments SODIUM (BEAKER) 137 meq/L 136-145 (test code = 381) POTASSIUM (BEAKER) 4.1 meq/L 3.5-5.1 (test code = 379) CHLORIDE (BEAKER) 104 meq/L 98-107 (test code = 382) CO2 (BEAKER) (test 26 meq/L 22-29 code = 355) BLOOD UREA NITROGEN 14 mg/dL 7-21 (BEAKER) (test code = 354) CREATININE (BEAKER) 1.20 mg/dL 0.57-1.25 (test code = 358) GLUCOSE RANDOM 324 mg/dL 70-105 H (BEAKER) (test code = 652) CALCIUM (BEAKER) 9.3 mg/dL 8.4-10.2 (test code = 697) EGFR (BEAKER) (test 61 mL/min/1.73 ESTIMA JOSE M GFR IS code = 1092) sq m NOT ACCURATE CREATININE CLEARANCE IN PREDICTING GLOMERULAR FILTRATION RATE . ESTIMATED GFR I S NOT APPLICABLE FOR DIALYSIS PATIEN TS. Specimen slightly ictericHEPATIC FUNCTION [id number] 14:16:00 Test Item Value Reference Range Interpretation Comments TOTAL PROTEIN (BEAKER) (test code = 7.6 gm/dL 6.0-8.3 770) ALBUMIN (BEAKER) (test code = 1145) 3.5 g/dL 3.5-5.0 BILIRUBIN TOTAL (BEAKER) (test code 2.1 mg/dL 0.2-1.2 H = 377) BILIRUBIN DIRECT (BEAKER) (test 0.8 mg/dL 0.1-0.5 H code = 706) ALKALINE PHOSPHATASE (BEAKER) (test 103 U/L 40-150 code = 346) AST (SGOT) (BEAKER) (test code = 27 U/L 5-34 353) ALT (SGPT) (BEAKER) (test code = 21 U/L 6-55 347) Specimen slightly ictericPROTHROMBIN [id number] 13:54:00 Test Item Value Reference Range Interpretation Comments PROTIME (BEAKER) (test code = 15.4 seconds 11.7-14.7 H 759) INR (BEAKER) (test code = 370) 1.3 <=5.9 RECOMMENDED COUMADIN/WARFARIN INR THERAPY RANGESSTANDARD DOSE: 2.0 - 3.0 Includes: PROPHYLAXIS forvenous thrombosis, systemic embolization; TREATMENT for venous thrombosis and/or pulmonary embolus.HIGH RISK: Target INR is 2.5-3.5 for patients with mechanical heart valves.CBC W/PLT COUNT & AUTO DIFFERENTIAL 2018-11-19 13:46:00 Test Item Value Reference Range Interpretation Comments WHITE BLOOD CELL COUNT (BEAKER) 4.5 K/ L 3.5-10.5 (test code = 775) RED BLOOD CELL COUNT (BEAKER) 3.82 M/ L 4.63-6.08 L (test code = 761) HEMOGLOBIN (BEAKER) (test code = 14.4 GM/DL 13.7-17.5 410) HEMATOCRIT (BEAKER) (test code = 41.2 % 40.1-51.0 411) MEAN CORPUSCULAR VOLUME (BEAKER) 107.9 fL 79.0-92.2 H (test code = 753) MEAN CORPUSCULAR HEMOGLOBIN 37.7 pg 25.7-32.2 H (BEAKER) (test code = 751) MEAN CORPUSCULAR HEMOGLOBIN CONC 35.0 GM/DL 32.3-36.5 (BEAKER) (test code = 752) RED CELL DISTRIBUTION WIDTH 12.7 % 11.6-14.4 (BEAKER) (test code = 412) PLATELET COUNT (BEAKER) (test code 92 K/CU MM 150-450 L = 756) MEAN PLATELET VOLUME (BEAKER) 10.0 fL 9.4-12.4 (test code = 754) NUCLEATED RED BLOOD CELLS (BEAKER) 0 /100 WBC 0-0 (test code = 413) NEUTROPHILS RELATIVE PERCENT 65 % (BEAKER) (test code = 429) LYMPHOCYTES RELATIVE PERCENT 22 % (BEAKER) (test code = 430) MONOCYTES RELATIVE PERCENT 9 % (BEAKER) (test code = 431) EOSINOPHILS RELATIVE PERCENT 4 % (BEAKER) (test code = 432) BASOPHILS RELATIVE PERCENT 1 % (BEAKER) (test code = 437) NEUTROPHILS ABSOLUTE COUNT 2.91 K/ L 1.78-5.38 (BEAKER) (test code = 670) LYMPHOCYTES ABSOLUTE COUNT 0.99 K/ L 1.32-3.57 L (BEAKER) (test code = 414) MONOCYTES ABSOLUTE COUNT (BEAKER) 0.39 K/ L 0.30-0.82 (test code = 415) EOSINOPHILS ABSOLUTE COUNT 0.17 K/ L 0.04-0.54 (BEAKER) (test code = 416) BASOPHILS ABSOLUTE COUNT (BEAKER) 0.03 K/ L 0.01-0.08 (test code = 417) IMMATURE GRANULOCYTES-RELATIVE 0 % 0-1 PERCENT (BEAKER) (test code = 2801) CT, CHEST, WITH [id number] 14:26:00FINAL REPORT INDICATION:68-year-old male with chest pain and upper back pain.Patient also has a history of cirrhosis, surveillance for hepatocellular carcinoma. COMPARISON: Abdomen MR exams September 25, 2017 and March 12, 2017 TECHNIQUE: CT of the Chest WITH intravenous contrast.CT of the Abdomen WITHOUT and WITH intravenous contrast. Enteric contrast was not used. The exam was performed according to our department dose-optimization protocol, which includes automated exposurecontrol, adjustments of mA and kV according to [...] demonstrated. There are large varices between the fundusand the medial pole of the spleen communicating with the left renal vein, splenorenal shunt. Smallerlower esophageal varices are also noted. There is no ascites. Spleen measures 16 cm coronal long axis. There is no upper abdominal lymphadenopathy or free fluid. Patient is status post cholecystectomy.There is no biliary ductal dilatation. Pancreas, adrenal [...] compression fracture. Cirrhosis without evidence of hepatocellular carcinoma.Large fat-containing periumbilical hernia. Lumbar spondylosis including lower lumbar spinal stenosis. Signed: Tanya Tavares MDReport Verified Date/Time: 06/23/2018 14:26:12 Reading Location: [facility] [id number] CT Body Reading Room CT, ABDOMEN, WITHOUT 2018-06-23 14:26:00Triple phase liver protocolFINAL REPORT INDICATION:68-year-old male with chest pain and upper back pain.Patient also has a history of cirrhosis, surveillance for hepatocellular carcinoma. COMPARISON: Abdomen MR exams September 25, 2017 and March 12, 2017 TECHNIQUE: CT of the Chest WITH intravenous contrast.CT of the Abdomen WITHOUT and WITH intravenous contrast. Enteric contrast was not used. The exam was performed according to our department dose-optimization protocol, which includes automated exposurecontrol, adjustments of mA and kV according to [...] demonstrated. There are large varices between the fundusand the medial pole of the spleen communicating with the left renal vein, splenorenal shunt. Smallerlower esophageal varices are also noted. There is no ascites. Spleen measures 16 cm coronal long axis. There is no upper abdominal lymphadenopathy or free fluid. Patient is status post cholecystectomy.There is no biliary ductal dilatation. Pancreas, adrenal [...] compression fracture. Cirrhosis without evidence of hepatocellular carcinoma.Large fat-containing periumbilical hernia. Lumbar spondylosis including lower lumbar spinal stenosis. Signed: Tanya Tavares MDReport Verified Date/Time: 06/23/2018 14:26:12 Reading Location: [facility] [id number] CT Body Reading Room [id number] 11:57:00 Test Item Value Reference Range Interpretation Comments POC-CREATININE 0.9 mg/dL 0.6-1.[address] [facility] (test [address] [facility] code = 1859) [facility] 7703 0 POC-EGFR 84 mL/min/1.73M2 (BEAKER) (test code = 1860) ALPHA FETOPROTEIN (AFP), TUMOR [id number] 14:11:00 Test Item Value Reference Range Interpretation Comments ALPHA-FETOPROTEIN (BEAKER) (test 7.9 ng/mL <10.0 code = 1094) HEPATIC FUNCTION [id number] 14:03:00 Test Item Value Reference Range Interpretation Comments TOTAL PROTEIN (BEAKER) (test code = 7.7 gm/dL 6.0-8.3 770) ALBUMIN (BEAKER) (test code = 1145) 3.5 g/dL 3.5-5.0 BILIRUBIN TOTAL (BEAKER) (test code 1.8 mg/dL 0.2-1.2 H = 377) BILIRUBIN DIRECT (BEAKER) (test 0.7 mg/dL 0.1-0.5 H code = 706) ALKALINE PHOSPHATASE (BEAKER) (test 108 U/L 40-150 code = 346) AST (SGOT) (BEAKER) (test code = 34 U/L 5-34 353) ALT (SGPT) (BEAKER) (test code = 22 U/L 6-55 347) BASIC METABOLIC [id number] 14:03:00 Test Item Value Reference Range Interpretation Comments SODIUM (BEAKER) 140 meq/L 136-145 (test code = 381) POTASSIUM (BEAKER) 3.7 meq/L 3.5-5.1 (test code = 379) CHLORIDE (BEAKER) 106 meq/L 98-107 (test code = 382) CO2 (BEAKER) (test 27 meq/L 22-29 code = 355) BLOOD UREA NITROGEN 12 mg/dL 7-21 (BEAKER) (test code = 354) CREATININE (BEAKER) 1.00 mg/dL 0.57-1.25 (test code = 358) GLUCOSE RANDOM 194 mg/dL 70-105 H (BEAKER) (test code = 652) CALCIUM (BEAKER) 9.7 mg/dL 8.4-10.2 (test code = 697) EGFR (BEAKER) (test 75 mL/min/1.73 ESTIMA JOSE M GFR IS code = 1092) sq m NOT ACCURATE CREATININE CLEARANCE IN PREDICTING GLOMERULAR FILTRATION RATE . ESTIMATED GFR I S NOT APPLICABLE FOR DIALYSIS PATIEN TS. PROTHROMBIN [id number] 13:34:00 Test Item Value Reference Range Interpretation Comments PROTIME (BEAKER) (test code = 15.6 seconds 11.7-14.7 H 759) INR (BEAKER) (test code = 370) 1.2 <=5.9 RECOMMENDED COUMADIN/WARFARIN INR THERAPY RANGESSTANDARD DOSE: 2.0 - 3.0 Includes: PROPHYLAXIS forvenous thrombosis, systemic embolization; TREATMENT for venous thrombosis and/or pulmonary embolus.HIGH RISK: Target INR is 2.5-3.5 for patients with mechanical heart valves.CBC W/PLT COUNT & AUTO DIFFERENTIAL 2018-05-26 13:25:00 Test Item Value Reference Range Interpretation Comments WHITE BLOOD CELL COUNT (BEAKER) 4.3 K/ L 3.5-10.5 (test code = 775) RED BLOOD CELL COUNT (BEAKER) 4.21 M/ L 4.63-6.08 L (test code = 761) HEMOGLOBIN (BEAKER) (test code = 15.0 GM/DL 13.7-17.5 410) HEMATOCRIT (BEAKER) (test code = 44.1 % 40.1-51.0 411) MEAN CORPUSCULAR VOLUME (BEAKER) 104.8 fL 79.0-92.2 H (test code = 753) MEAN CORPUSCULAR HEMOGLOBIN 35.6 pg 25.7-32.2 H (BEAKER) (test code = 751) MEAN CORPUSCULAR HEMOGLOBIN CONC 34.0 GM/DL 32.3-36.5 (BEAKER) (test code = 752) RED CELL DISTRIBUTION WIDTH 12.6 % 11.6-14.4 (BEAKER) (test code = 412) PLATELET COUNT (BEAKER) (test 103 K/CU MM 150-450 L code = 756) MEAN PLATELET VOLUME (BEAKER) 9.7 fL 9.4-12.4 (test code = 754) NUCLEATED RED BLOOD CELLS 0 /100 WBC 0-0 (BEAKER) (test code = 413) NEUTROPHILS RELATIVE PERCENT 65 % (BEAKER) (test code = 429) LYMPHOCYTES RELATIVE PERCENT 22 % (BEAKER) (test code = 430) MONOCYTES RELATIVE PERCENT 9 % (BEAKER) (test code = 431) EOSINOPHILS RELATIVE PERCENT 3 % (BEAKER) (test code = 432) BASOPHILS RELATIVE PERCENT 1 % (BEAKER) (test code = 437) NEUTROPHILS ABSOLUTE COUNT 2.76 K/ L 1.78-5.38 (BEAKER) (test code = 670) LYMPHOCYTES ABSOLUTE COUNT 0.92 K/ L 1.32-3.57 L (BEAKER) (test code = 414) MONOCYTES ABSOLUTE COUNT (BEAKER) 0.40 K/ L 0.30-0.82 (test code = 415) EOSINOPHILS ABSOLUTE COUNT 0.14 K/ L 0.04-0.54 (BEAKER) (test code = 416) BASOPHILS ABSOLUTE COUNT (BEAKER) 0.03 K/ L 0.01-0.08 (test code = 417) IMMATURE GRANULOCYTES-RELATIVE 0 % 0-1 PERCENT (BEAKER) (test code = 2801) ALPHA FETOPROTEIN (AFP), TUMOR [id number] 17:40:00 Test Item Value Reference Range Interpretation Comments ALPHA-FETOPROTEIN (BEAKER) (test 8.6 ng/mL <10.0 code = 1094) HEPATIC FUNCTION [id number] 17:34:00 Test Item Value Reference Range Interpretation Comments TOTAL PROTEIN (BEAKER) (test code = 7.4 gm/dL 6.0-8.3 770) ALBUMIN (BEAKER) (test code = 1145) 3.6 g/dL 3.5-5.0 BILIRUBIN TOTAL (BEAKER) (test code 1.5 mg/dL 0.2-1.2 H = 377) BILIRUBIN DIRECT (BEAKER) (test 0.6 mg/dL 0.1-0.5 H code = 706) ALKALINE PHOSPHATASE (BEAKER) (test 98 U/L 40-150 code = 346) AST (SGOT) (BEAKER) (test code = 28 U/L 5-34 353) ALT (SGPT) (BEAKER) (test code = 19 U/L 6-55 347) BASIC METABOLIC [id number] 17:34:00 Test Item Value Reference Range Interpretation Comments SODIUM (BEAKER) 139 meq/L 136-145 (test code = 381) POTASSIUM (BEAKER) 3.8 meq/L 3.5-5.1 (test code = 379) CHLORIDE (BEAKER) 105 meq/L 98-107 (test code = 382) CO2 (BEAKER) (test 25 meq/L 22-29 code = 355) BLOOD UREA NITROGEN 13 mg/dL 7-21 (BEAKER) (test code = 354) CREATININE (BEAKER) 0.89 mg/dL 0.57-1.25 (test code = 358) GLUCOSE RANDOM 177 mg/dL 70-105 H (BEAKER) (test code = 652) CALCIUM (BEAKER) 9.8 mg/dL 8.4-10.2 (test code = 697) EGFR (BEAKER) (test 86 mL/min/1.73 ESTIMA JOSE M GFR IS code = 1092) sq m NOT ACCURATE CREATININE CLEARANCE IN PREDICTING GLOMERULAR FILTRATION RATE . ESTIMATED GFR I S NOT APPLICABLE FOR DIALYSIS PATIEN TS. GAMMA GLUTAMYL TRANSFERASE (GGT)2017-11-10 17:34:00 Test Item Value Reference Range Interpretation Comments GAMMA GLUTAMYL TRANSFERASE (BEAKER) 55 U/L 9-64 (test code = 364) PROTHROMBIN [id number] 17:11:00 Test Item Value Reference Range Interpretation Comments PROTIME (BEAKER) (test code = 16.2 seconds 11.7-14.7 H 759) INR (BEAKER) (test code = 370) 1.3 <=5.9 RECOMMENDED COUMADIN/WARFARIN INR THERAPY RANGESSTANDARD DOSE: 2.0 - 3.0 Includes: PROPHYLAXIS forvenous thrombosis, systemic embolization; TREATMENT for venous thrombosis and/or pulmonary embolus.HIGH RISK: Target INR is 2.5-3.5 for patients with mechanical heart valves.CBC W/PLT COUNT & AUTO DIFFERENTIAL 2017-11-10 17:05:00 Test Item Value Reference Range Interpretation Comments WHITE BLOOD CELL COUNT (BEAKER) 4.4 K/ L 3.5-10.5 (test code = 775) RED BLOOD CELL COUNT (BEAKER) 4.36 M/ L 4.63-6.08 L (test code = 761) HEMOGLOBIN (BEAKER) (test code = 15.3 GM/DL 13.7-17.5 410) HEMATOCRIT (BEAKER) (test code = 44.1 % 40.1-51.0 411) MEAN CORPUSCULAR VOLUME (BEAKER) 101.1 fL 79.0-92.2 H (test code = 753) MEAN CORPUSCULAR HEMOGLOBIN 35.1 pg 25.7-32.2 H (BEAKER) (test code = 751) MEAN CORPUSCULAR HEMOGLOBIN CONC 34.7 GM/DL 32.3-36.5 (BEAKER) (test code = 752) RED CELL DISTRIBUTION WIDTH 12.7 % 11.6-14.4 (BEAKER) (test code = 412) PLATELET COUNT (BEAKER) (test 101 K/CU MM 150-450 L code = 756) MEAN PLATELET VOLUME (BEAKER) 9.6 fL 9.4-12.4 (test code = 754) NUCLEATED RED BLOOD CELLS 0 /100 WBC 0-0 (BEAKER) (test code = 413) NEUTROPHILS RELATIVE PERCENT 61 % (BEAKER) (test code = 429) LYMPHOCYTES RELATIVE PERCENT 23 % (BEAKER) (test code = 430) MONOCYTES RELATIVE PERCENT 10 % (BEAKER) (test code = 431) EOSINOPHILS RELATIVE PERCENT 5 % (BEAKER) (test code = 432) BASOPHILS RELATIVE PERCENT 1 % (BEAKER) (test code = 437) NEUTROPHILS ABSOLUTE COUNT 2.66 K/ L 1.78-5.38 (BEAKER) (test code = 670) LYMPHOCYTES ABSOLUTE COUNT 1.02 K/ L 1.32-3.57 L (BEAKER) (test code = 414) MONOCYTES ABSOLUTE COUNT (BEAKER) 0.43 K/ L 0.30-0.82 (test code = 415) EOSINOPHILS ABSOLUTE COUNT 0.22 K/ L 0.04-0.54 (ZACKARY) (test code = 416) BASOPHILS ABSOLUTE COUNT (RADHAAKER) 0.04 K/ L 0.01-0.08 (test code = 417) IMMATURE GRANULOCYTES-RELATIVE 0 % 0-1 PERCENT (ZACKARY) (test code = 2801) POCT-GLUCOSE [id number] 12:40:00 Test Item Value Reference Range Interpretation Comments POC-GLUCOSE METER 205 mg/dL 70-110 H TESTED AT [facility] 7200 ([facility]) (test code ELIZABETH Reeves BLDG A = 1538) [facility] 7703 0 MR, ABDOMEN, [id number] 13:49:00FINAL REPORT TECHNIQUE: MRI of the abdomen WITHOUT and WITH intravenous contrast. INDICATION: 67-year-old man with cirrhosis and portal hypertension. COMPARISON: Abdomen MRI 03/12/2017. FINDINGS: LOWER THORAX: Unremarkable. LIVER: Cirrhotic morphology of the liver. No suspicious hepatic lesions. BILIARY: Prior cholecystectomy. No biliary ductal dilatation or filling defect.SPLEEN: Unchanged enlarged spleen measures 16 cm in the craniocaudal dimension.PANCREAS: No focal masses or ductal dilatation. ADRENALS: No adrenal nodules.KIDNEYS/URETERS: No hydronephrosis or solid mass lesions. Unchanged 1.1 cm cyst in the right interpolar region contains a single thin septation. PERITONEUM/RETROPERITONEUM: No free fluid.LYMPH NODES: No lymphadenopathy.VESSELS: Portal system and hepaticveins are patent. Main portal vein measures 1.4 cm in diameter. 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 GI TRACT: No distention or wall thickening. BONES AND SOFT TISSUES: Unremarkable. IMPRESSION:Cirrhosis with portal hypertension. No suspicious liver lesions. Signed: Troy Fermin MDReport Verified Date/Time: 09/25/2017 13:49:59 Reading Location: [address] Radiology Reading Room [id number] 12:23:00 Test Item Value Reference Range Interpretation Comments POC-CREATININE 0.9 mg/dL 0.6-1.[address] [facility] (ZACKARY) (test [address] code = 1859) [facility] 7703 0 POC-EGFR 85 mL/min/1.73M2 (BEAKER) (test code = 1860) ALPHA FETOPROTEIN (AFP), TUMOR [id number] 18:16:00 Test Item Value Reference Range Interpretation Comments ALPHA-FETOPROTEIN (BEAKER) (test 8.7 ng/mL <10.0 code = 1094) BASIC METABOLIC [id number] 18:01:00 Test Item Value Reference Range Interpretation Comments SODIUM (BEAKER) 136 meq/L 136-145 (test code = 381) POTASSIUM (BEAKER) 3.6 meq/L 3.5-5.1 Specimen slightly (test code = 379) hemolyzed CHLORIDE (BEAKER) 101 meq/L 98-107 (test code = 382) CO2 (BEAKER) (test 23 meq/L 22-29 code = 355) BLOOD UREA NITROGEN 14 mg/dL 7-21 (BEAKER) (test code = 354) CREATININE (BEAKER) 1.10 mg/dL 0.57-1.25 Specimen slightly (test code = 358) hemolyzed GLUCOSE RANDOM 381 mg/dL 70-105 H (BEAKER) (test code = 652) CALCIUM (BEAKER) 9.6 mg/dL 8.4-10.2 (test code = 697) EGFR (BEAKER) (test 67 mL/min/1.73 ESTIMA JOSE M GFR IS code = 1092) sq m NOT ACCURATE CREATININE CLEARANCE IN PREDICTING GLOMERULAR FILTRATION RATE . ESTIMATED GFR I S NOT APPLICABLE FOR DIALYSIS PATIEN TS. HEPATIC FUNCTION [id number] 18:01:00 Test Item Value Reference Range Interpretation Comments TOTAL PROTEIN (BEAKER) 7.9 gm/dL 6.0-8.3 Speci men slightly (test code = 770) hemolyzed ALBUMIN (BEAKER) (test 3.6 g/dL 3.5-5.0 Speci men slightly code = 1145) hemolyzed BILIRUBIN TOTAL 1.1 mg/dL 0.2-1.2 Specimen sli ghtly (BEAKER) (test code = hemoly zed 377) BILIRUBIN DIRECT 0.3 mg/dL 0.1-0.5 Specimen sl ightly (BEAKER) (test code = hemoly zed 706) ALKALINE PHOSPHATASE 127 U/L 40-150 (BEAKER) (test code = 346) AST (SGOT) (BEAKER) 30 U/L 5-34 Specimen slightly (test code = 353) hemolyzed ALT (SGPT) (BEAKER) 22 U/L 6-55 Specimen slightly (test code = 347) hemolyzed PROTHROMBIN [id number] 17:25:00 Test Item Value Reference Range Interpretation Comments PROTIME (BEAKER) (test code = 16.0 seconds 11.7-14.7 H 759) INR (BEAKER) (test code = 370) 1.3 <=5.9 RECOMMENDED COUMADIN/WARFARIN INR THERAPY RANGESSTANDARD DOSE: 2.0 - 3.0 Includes: PROPHYLAXIS forvenous thrombosis, systemic embolization; TREATMENT for venous thrombosis and/or pulmonary embolus.HIGH RISK: Target INR is 2.5-3.5 for patients with mechanical heart valves.CBC W/PLT COUNT & AUTO DIFFERENTIAL 2017-07-24 17:12:00 Test Item Value Reference Range Interpretation Comments WHITE BLOOD CELL COUNT (BEAKER) 5.2 K/ L 3.5-10.5 (test code = 775) RED BLOOD CELL COUNT (BEAKER) 4.49 M/ L 4.63-6.08 L (test code = 761) HEMOGLOBIN (BEAKER) (test code = 15.6 GM/DL 13.7-17.5 410) HEMATOCRIT (BEAKER) (test code = 44.7 % 40.1-51.0 411) MEAN CORPUSCULAR VOLUME (BEAKER) 99.6 fL 79.0-92.2 H (test code = 753) MEAN CORPUSCULAR HEMOGLOBIN 34.7 pg 25.7-32.2 H (BEAKER) (test code = 751) MEAN CORPUSCULAR HEMOGLOBIN CONC 34.9 GM/DL 32.3-36.5 (BEAKER) (test code = 752) RED CELL DISTRIBUTION WIDTH 12.7 % 11.6-14.4 (BEAKER) (test code = 412) PLATELET COUNT (BEAKER) (test 112 K/CU MM 150-450 L code = 756) MEAN PLATELET VOLUME (BEAKER) 9.6 fL 9.4-12.4 (test code = 754) NUCLEATED RED BLOOD CELLS 0 /100 WBC 0-0 (BEAKER) (test code = 413) NEUTROPHILS RELATIVE PERCENT 59 % (BEAKER) (test code = 429) LYMPHOCYTES RELATIVE PERCENT 27 % (BEAKER) (test code = 430) MONOCYTES RELATIVE PERCENT 9 % (BEAKER) (test code = 431) EOSINOPHILS RELATIVE PERCENT 4 % (BEAKER) (test code = 432) BASOPHILS RELATIVE PERCENT 1 % (BEAKER) (test code = 437) NEUTROPHILS ABSOLUTE COUNT 3.08 K/ L 1.78-5.38 (BEAKER) (test code = 670) LYMPHOCYTES ABSOLUTE COUNT 1.38 K/ L 1.32-3.57 (BEAKER) (test code = 414) MONOCYTES ABSOLUTE COUNT (BEAKER) 0.48 K/ L 0.30-0.82 (test code = 415) EOSINOPHILS ABSOLUTE COUNT 0.19 K/ L 0.04-0.54 (BEAKER) (test code = 416) BASOPHILS ABSOLUTE COUNT (BEAKER) 0.04 K/ L 0.01-0.08 (test code = 417) IMMATURE GRANULOCYTES-RELATIVE 0 % 0-1 PERCENT (BEAKER) (test code = 2801) POCT-GLUCOSE [id number] 08:27:00 Test Item Value Reference Range Interpretation Comments POC-GLUCOSE METER 205 mg/dL 70-110 H TESTED AT [facility] 6720 (BEAKER) (test code = RYANN Pruett [facility] 1538) [address] MR, ABDOMEN, [id number] 15:58:00MRI liver protocolMRI liver protocolFINAL REPORT TECHNIQUE: MRI of the abdomen WITHOUT and WITH intravenous contrast. INDICATION: 67-year-old man with cirrhosis. COMPARISON: None. FINDINGS: LOWER THORAX: Unremarkable. LIVER: Cirrhotic morphology of the liver. No suspicious hepatic lesions. BILIARY: Prior cholecystectomy. No biliary ductal dilatation or filling defect.SPLEEN: Enlarged, measuring 15.8 cm in the craniocaudal dimension.PANCREAS: No focal masses or ductal dilatation. ADRENALS: No adrenal nodules.KIDNEYS/URETERS: No hydronephrosis or solid mass lesions. 1.1 cm cyst in the right interpolar region contains a single thin septation. PERITONEUM/RETROPERITONEUM: No free fluid.LYMPH NODES: No lymphadenopat hy.VESSELS: Portal system and hepatic veins are patent. Main portal vein measures 1.2 cm in diameter. 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 GI TRACT: No distention or wall thickening. BONES AND SOFT TISSUES: Unremarkable. IMPRESSION:Cirrhosis with portal hypertension. No suspicious liver lesions. Signed: Troy Fermineport Verified Date/Time: 03/12/2017 15:58:26 Reading Location: [facility] B1 C013Y CT Body Reading Room HEPATITIS B CORE ANTIBODY, [id number] 15:34:00 Test Item Value Reference Range Interpretation Comments HEPATITIS B CORE TOTAL ANTIBODY Nonreactive Nonreactive (BEAKER) (test code = 497) HEPATIC FUNCTION [id number] 15:09:00 Test Item Value Reference Range Interpretation Comments TOTAL PROTEIN (BEAKER) (test code = 7.5 gm/dL 6.0-8.3 770) ALBUMIN (BEAKER) (test code = 1145) 3.5 g/dL 3.5-5.0 BILIRUBIN TOTAL (BEAKER) (test code 0.9 mg/dL 0.2-1.2 = 377) BILIRUBIN DIRECT (BEAKER) (test 0.4 mg/dL 0.1-0.5 code = 706) ALKALINE PHOSPHATASE (BEAKER) (test 86 U/L 40-150 code = 346) AST (SGOT) (BEAKER) (test code = 30 U/L 5-34 353) ALT (SGPT) (BEAKER) (test code = 24 U/L 6-55 347) BASIC METABOLIC [id number] 15:09:00 Test Item Value Reference Range Interpretation Comments SODIUM (BEAKER) 139 meq/L 136-145 (test code = 381) POTASSIUM (BEAKER) 3.9 meq/L 3.5-5.1 (test code = 379) CHLORIDE (BEAKER) 105 meq/L 98-107 (test code = 382) CO2 (BEAKER) (test 24 meq/L 22-29 code = 355) BLOOD UREA NITROGEN 19 mg/dL 7-21 (BEAKER) (test code = 354) CREATININE (BEAKER) 1.00 mg/dL 0.57-1.25 (test code = 358) GLUCOSE RANDOM 194 mg/dL 70-105 H (BEAKER) (test code = 652) CALCIUM (BEAKER) 9.9 mg/dL 8.4-10.2 (test code = 697) EGFR (BEAKER) (test 75 mL/min/1.73 ESTIMA JOSE M GFR IS code = 1092) sq m NOT ACCURATE CREATININE CLEARANCE IN PREDICTING GLOMERULAR FILTRATION RATE . ESTIMATED GFR I S NOT APPLICABLE FOR DIALYSIS PATIEN TS. PROTHROMBIN [id number] 14:58:00 Test Item Value Reference Range Interpretation Comments PROTIME (BEAKER) (test code = 15.4 seconds 11.7-14.7 H 759) INR (BEAKER) (test code = 370) 1.2 <=5.9 RECOMMENDED COUMADIN/WARFARIN INR THERAPY RANGESSTANDARD DOSE: 2.0 - 3.0 Includes: PROPHYLAXIS forvenous thrombosis, systemic embolization; TREATMENT for venous thrombosis and/or pulmonary embolus.HIGH RISK: Target INR is 2.5-3.5 for patients with mechanical heart valves.CBC W/PLT COUNT & AUTO DIFFERENTIAL 2017-03-12 14:42:00 Test Item Value Reference Range Interpretation Comments WHITE BLOOD CELL COUNT (BEAKER) 5.9 K/ L 3.5-10.5 (test code = 775) RED BLOOD CELL COUNT (BEAKER) 4.11 M/ L 4.63-6.08 L (test code = 761) HEMOGLOBIN (BEAKER) (test code = 14.6 GM/DL 13.7-17.5 410) HEMATOCRIT (BEAKER) (test code = 42.8 % 40.1-51.0 411) MEAN CORPUSCULAR VOLUME (BEAKER) 104.1 fL 79.0-92.2 H (test code = 753) MEAN CORPUSCULAR HEMOGLOBIN 35.5 pg 25.7-32.2 H (BEAKER) (test code = 751) MEAN CORPUSCULAR HEMOGLOBIN CONC 34.1 GM/DL 32.3-36.5 (BEAKER) (test code = 752) RED CELL DISTRIBUTION WIDTH 12.9 % 11.6-14.4 (BEAKER) (test code = 412) PLATELET COUNT (BEAKER) (test 138 K/CU MM 150-450 L code = 756) MEAN PLATELET VOLUME (BEAKER) 9.8 fL 9.4-12.4 (test code = 754) NUCLEATED RED BLOOD CELLS 0 /100 WBC 0-0 (BEAKER) (test code = 413) NEUTROPHILS RELATIVE PERCENT 65 % (BEAKER) (test code = 429) LYMPHOCYTES RELATIVE PERCENT 22 % (BEAKER) (test code = 430) MONOCYTES RELATIVE PERCENT 10 % (BEAKER) (test code = 431) EOSINOPHILS RELATIVE PERCENT 3 % (BEAKER) (test code = 432) BASOPHILS RELATIVE PERCENT 1 % (BEAKER) (test code = 437) NEUTROPHILS ABSOLUTE COUNT 3.77 K/ L 1.78-5.38 (BEAKER) (test code = 670) LYMPHOCYTES ABSOLUTE COUNT 1.30 K/ L 1.32-3.57 L (BEAKER) (test code = 414) MONOCYTES ABSOLUTE COUNT (BEAKER) 0.56 K/ L 0.30-0.82 (test code = 415) EOSINOPHILS ABSOLUTE COUNT 0.16 K/ L 0.04-0.54 (BEAKER) (test code = 416) BASOPHILS ABSOLUTE COUNT (BEAKER) 0.04 K/ L 0.01-0.08 (test code = 417) IMMATURE GRANULOCYTES-RELATIVE 0 % 0-1 PERCENT (BEAKER) (test code = 2803) [id number] 13:51:00 Test Item Value Reference Range Interpretation Comments POC-CREATININE 0.9 mg/dL 0.6-1.[address] [facility] 6720 ([facility]) (test [place] code = 4957) [address] POC-EGFR ([facility]) 85 mL/min/1.73M2 (test code = 8408)
[2021-10-18 23:32] LABS: Absolute Lymphocytes (CBC) 0.6 K/uL (0.7-4.9); Hematocrit 37.6 % (39.6-49.0); Lymphocytes % 16.1 % (15.3-44.8); MPV 7.3 fL (7.6-11.3); RBC Red Blood Cell Count 3.33 M/uL (4.33-5.43)
[2021-10-18 23:45] LABS: Potassium 3.9 mmol/L (3.5-5.1)
[2021-10-18 23:51] LABS: Blood Morphology Comment NOTED (NOT SEEN); Macrocytosis 2+; Platelet Estimate DECR; White Blood Cell Scan OK (OK)
--- NOTE | 2021-10-19 01:59 | EDPHYS ---
Physician Documentation [facility] Name: Solo Lin Jr Age: 71 yrs Sex: Male : 1950 Arrival Date: 10/18/2021 Time: 22:34 Bed 14 Private MD: ED Physician Gianluca Abdalla HPI: 10/19 04:41 This 71 yrs old Male presents to ER via EMS with unknown complaint. kdr 04:41 Chest pain status post fall. Onset: The symptoms/episode began/occurred suddenly, just kdr prior to arrival. Severity of symptoms: At their worst the symptoms were mild in the emergency department the symptoms are unchanged. The patient has not experienced similar symptoms in the past. The patient has not recently seen a physician. Patient has had several recent falls. This evening he fell twice. First time was around 940. At that time he fell while trying to get out of her chair and fell onto his forehead. He got up from that fall and sat on the couch. And he attempted to get up from the couch he fell again. This time he struck his chest with his chin on the floor. Patient denies being knocked out or any other injuries. He does not appear acutely ill and otherwise seems to be in his normal state of health. He has no new complaints is completely nontoxic. Historical: - Allergies: 10/18 23:00 No Known Allergies; ke1 - PMHx: 23:00 Gout; Hypothyroidism; Migraines; NIDDM; PUD; Hypertensive disorder; ke1 - Immunization history:: Client reports receiving the 2nd dose of the Covid vaccine, Flu vaccine is not up to date. It has been more than one year since last vaccine. - Social history:: Smoking status: Patient denies any tobacco usage or history of. - Immunization history: Last tetanus immunization: > 10 years ago. ROS: 10/19 04:41 Constitutional: Negative for fever, chills, and weight loss, Eyes: Negative for injury, kdr pain, redness, and discharge, ENT: Negative for injury, pain, and discharge, Neck: Negative for injury, pain, and swelling, Respiratory: Negative for shortness of breath, cough, wheezing, and pleuritic chest pain, Abdomen/GI: Negative for abdominal pain, nausea, vomiting, diarrhea, and constipation, Back: Negative for injury and pain, : Negative for injury, bleeding, discharge, and swelling, MS/Extremity: Negative for injury and deformity, Skin: Negative for injury, rash, and discoloration, Neuro: Negative for headache, weakness, numbness, tingling, and seizure activity. Psych: Negative for depression, anxiety, suicide ideation, homicidal ideation, and hallucinations, Allergy/Immunology: Negative for hives, rash, and allergies, Endocrine: Negative for neck swelling, polydipsia, polyuria, polyphagia, and marked weight changes, Hematologic/Lymphatic: Negative for swollen nodes, abnormal bleeding, and unusual bruising. Cardiovascular: Positive for chest pain, with cough, with movement, of the mid-sternal area, Negative for edema, orthopnea, palpitations, paroxysmal nocturnal dyspnea, acute changes. Exam: 04:41 Constitutional: This is a well developed, well nourished patient who is awake, alert, kdr and in no acute distress. Head/Face: Normocephalic, atraumatic. Eyes: Pupils equal round and reactive to light, extra-ocular motions intact. Lids and lashes normal. Conjunctiva and sclera are non-icteric and not injected. Cornea within normal limits. Periorbital areas with no swelling, redness, or edema. Neck: Trachea midline, no thyromegaly or masses palpated, and no cervical lymphadenopathy. Supple, full range of motion without nuchal rigidity, or vertebral point tenderness. No Meningismus. Chest/axilla: Normal chest wall appearance and motion. Nontender with no deformity. No lesions are appreciated. Cardiovascular: Regular rate and rhythm with a normal S1 and S2. No gallops, murmurs, or rubs. Normal PMI, no JVD. No pulse deficits. Respiratory: Lungs have equal breath sounds bilaterally, clear to auscultation and percussion. No rales, rhonchi or wheezes noted. No increased work of breathing, no retractions or nasal flaring. Abdomen/GI: Soft, non-tender, with normal bowel sounds. No distension or tympany. No guarding or rebound. No evidence of tenderness throughout. Back: No spinal tenderness. No costovertebral tenderness. Full range of motion. Skin: Warm, dry with normal turgor. Normal color with no rashes, no lesions, and no evidence of cellulitis. MS/ Extremity: Pulses equal, no cyanosis. Neurovascular intact. Full, normal range of motion. Neuro: Awake and alert, GCS 15, oriented to person, place, time, and situation. Cranial nerves II-XII grossly intact. Motor strength 5/5 in all extremities. Sensory grossly intact. Cerebellar exam normal. Normal gait. Psych: Awake, alert, with orientation to person, place and time. Behavior, mood, and affect are within normal limits. 04:41 Chest/axilla: Inspection: normal, Palpation: crepitus, is not appreciated, tenderness, that is mild, of the mid-sternal area. Vital Signs: 10/18 22:39 BP 124 / 47; Pulse 72; Resp 16; Temp 98.9(O); Pulse Ox 96% on R/A; Weight 143.34 kg; ke1 Height 6 ft. 3 in. (190.50 cm); Pain 4/10; 23:49 BP 127 / 56; Pulse 73; Resp 18; Pulse Ox 100% on R/A; ke1 10/19 01:10 BP 120 / 59; Pulse 72; Resp 16; Pulse Ox 100% on R/A; ke1 02:51 BP 120 / 63; Pulse 70; Resp 17; Temp 98.2(O); Pulse Ox 100% on R/A; Pain 2/10; ke1 10/18 22:39 Body Mass Index 39.50 (143.34 kg, 190.50 cm) ke1 Florence Coma Score: 10/18 22:39 Eye Response: spontaneous(4). Verbal Response: oriented(5). Motor Response: obeys ke1 commands(6). Total: 15. Trauma Score (Adult): 22:39 Eye Response: spontaneous(1); Verbal Response: oriented(1); Motor Response: obeys ke1 commands(2); Systolic BP: > 89 mm Hg(4); Respiratory Rate: 10 to 29 per min(4); [place] Score: 15; Trauma Score: 12 MDM: 10/19 01:56 Data reviewed: vital signs, nurses notes, lab test result(s), radiologic studies. kdr Counseling: I had a detailed discussion with the patient and/or guardian regarding: the historical points, exam findings, and any diagnostic results supporting the discharge/admit diagnosis, lab results, radiology results, the need for outpatient follow up. ED course: Review of the CT report, the patient does not noted to have any acute illness or injury that is presently life-threatening. There is no evidence of any bony abnormality of the sternum. Patient otherwise has chronic changes. Patient specifically does not admit to pain in the thoracic spine area noted on the CT at this time. Is otherwise stable and without complaint.. 01:59 Patient medically screened. kdr 10/18 23:02 Order name: Basic Metabolic Panel; Complete Time: 00:12 kdr 10/18 23:02 Order name: CBC with Diff; Complete Time: 00:12 kdr 10/18 23:02 Order name: Type And Screen kdr 10/18 23:02 Order name: CT Traumagram (Head C Spine CAP W Con) kdr 10/18 23:02 Order name: Labs collected and sent; Complete Time: 23:27 kdr 10/18 23:38 Order name: CBC Smear Scan; Complete Time: 00:12 EDMS Administered Medications: No medications were administered Disposition Summary: 10/19/21 01:59 Discharge Ordered Location: Home kdr Problem: new kdr Symptoms: have improved kdr Condition: Stable kdr Diagnosis - Unspecified injury of head, initial encounter kdr - Chest pain, unspecified kdr - Sprain of ribs and sternum kdr Followup: kdr - With: Private Physician - When: 2 - 3 days - Reason: If symptoms return, Further diagnostic work-up, Recheck today's complaints, Continuance of care, Re-evaluation by your physician Discharge Instructions: - Chest Wall Pain, [id number] kdr - Discharge Summary Sheet ke1 Forms: - Work release form ke1 - Medication Reconciliation Form kdr - Thank You Letter kdr Prescriptions: - Ibuprofen 600 mg Oral Tablet - take 1 tablet by ORAL route every 6 hours As needed take with food; 12 tablet; kdr Refills: 0, Product Selection Permitted Signatures: Dispatcher [employer] EDMS Gianluca Abdalla MD MD kdr Andrew Barbour RN RN ke1
--- NOTE | 2021-10-19 01:59 | ER ---
Nurse's Notes [facility] Name: Solo Lin Jr Age: 71 yrs Sex: Male : 1950 Arrival Date: 10/18/2021 Time: 22:34 Bed 14 Private MD: Diagnosis: Unspecified injury of head, initial encounter;Chest pain, unspecified;Sprain of ribs and sternum Presentation: 10/18 22:34 Chief complaint: Patient states: Fell twice at home at around 2139, first fall while ke1 trying to get up from chair to restroom fell on forehead. Got up and sat in the couch. Attempt to get up from couch and fell again hitting chest and chin on the floor. BGL 243 per EMS 120/48549 100%. Care prior to arrival:. Mechanism of Injury: Fall out of chair and couch. Trauma event details: Injury occurred: at home. Injury occurred: October 18, 2021. 22:34 Acuity: GAVIN 4 ke1 22:34 Method Of Arrival: EMS: [facility] ke1 22:40 Initial Sepsis Screen: Does the patient meet any 2 criteria? No. Patient's initial ke1 sepsis screen is negative. Does the patient have a suspected source of infection? No. Patient's initial sepsis screen is negative. Onset of symptoms was October 18, 2021 at 21:30. 23:44 Coronavirus screen: Vaccine status: Patient reports receiving the 2nd dose of the covid ke1 vaccine. Ebola Screen: No symptoms or risks identified at this time. Risk Assessment: Do you want to hurt yourself or someone else? Patient reports no desire to harm self or others. Trauma Activation: Physician: ED Physician; Name: berenice olson; Notified At: 22:40; Arrived At: Physician: General Surgeon; Name: ; Notified At: 22:40; Arrived At: Physician: Radiology; Name: ; Notified At: 22:40; Arrived At: Physician: Respiratory; Name: ; Notified At: 22:40; Arrived At: Physician: Lab; Name: ; Notified At: 22:40; Arrived At: Historical: - Allergies: 23:00 No Known Allergies; ke1 - PMHx: 23:00 Gout; Hypothyroidism; Migraines; NIDDM; PUD; Hypertensive disorder; ke1 - Immunization history:: Client reports receiving the 2nd dose of the Covid vaccine, Flu vaccine is not up to date. It has been more than one year since last vaccine. - Social history:: Smoking status: Patient denies any tobacco usage or history of. - Immunization history: Last tetanus immunization: > 10 years ago. Screenin:02 Abuse screen: Denies threats or abuse. Nutritional screening: No deficits noted. ke1 Tuberculosis screening: No symptoms or risk factors identified. Fall Risk Fall in past 12 months (25 points). No secondary diagnosis (0 pts). Primary Survey: 22:30 NO uncontrolled hemorrhage observed. Breathing/Chest: Respiratory pattern: regular, ke1 Respiratory effort: unlabored. Circulation: Heart tones present. Disability Alert. Exposure/Environment: All clothing and personal items were removed. Reassessment Breathing/Chest Respiratory pattern. 10/19 00:02 Reassessment Airway Airway Patent Breathing/Chest Respiratory pattern Regular ke1 Circulation Heart tones Present. Secondary Survey: 10/18 23:43 HEENT: No deficits noted. Gastrointestinal: No deficits noted. : No deficits noted. ke1 Musculoskeletal: Capillary refill < 3 seconds, Range of motion: intact in all extremities. Injury Description: Skin tears sustained to left lower arm. Assessment: 22:40 General: Appears in no apparent distress. uncomfortable, Behavior is calm, cooperative, ke1 appropriate for age. Pain: Complains of pain in chest 4/10 Pain does not radiate. Pain currently is 4 out of 10 on a pain scale. at worst was 6 out of 10 on a pain scale. level that patient reports is acceptable is 4 out of 10 on a pain scale. Quality of pain is described as tender. Neuro: Level of Consciousness is awake, alert, Oriented to person, place, time, situation. EENT: No deficits noted. Cardiovascular: Reports chest pain, Heart tones S1 S2. Respiratory: Airway is patent Trachea midline Respiratory effort is even, unlabored, Respiratory pattern is regular, symmetrical. GI: Abdomen is obese. : No deficits noted. Derm: Skin has skin tears on left arm. Musculoskeletal: No deficits noted. 23:00 Reassessment: Patient appears in no apparent distress at this time. No changes from ke1 previously documented assessment. 23:30 Reassessment: No changes from previously documented assessment. ke1 10/19 00:30 Reassessment: No changes from previously documented assessment. Patient denies pain at ke1 this time. Patient states feeling better. 01:22 Reassessment: No changes from previously documented assessment. ke1 02:27 Reassessment: Patient does not have any mean of transportation, hospital to provide ke1 transportation. Taxi will be here in 20 mn. Vital Signs: 10/18 22:39 BP 124 / 47; Pulse 72; Resp 16; Temp 98.9(O); Pulse Ox 96% on R/A; Weight 143.34 kg; ke1 Height 6 ft. 3 in. (190.50 cm); Pain 4/10; 23:49 BP 127 / 56; Pulse 73; Resp 18; Pulse Ox 100% on R/A; ke1 10/19 01:10 BP 120 / 59; Pulse 72; Resp 16; Pulse Ox 100% on R/A; ke1 02:51 BP 120 / 63; Pulse 70; Resp 17; Temp 98.2(O); Pulse Ox 100% on R/A; Pain 2/10; ke1 10/18 22:39 Body Mass Index 39.50 (143.34 kg, 190.50 cm) ke1 Florence Coma Score: 10/18 22:39 Eye Response: spontaneous(4). Verbal Response: oriented(5). Motor Response: obeys ke1 commands(6). Total: 15. Trauma Score (Adult): 22:39 Eye Response: spontaneous(1); Verbal Response: oriented(1); Motor Response: obeys ke1 commands(2); Systolic BP: > 89 mm Hg(4); Respiratory Rate: 10 to 29 per min(4); [place] Score: 15; Trauma Score: 12 ED Course: 22:34 Patient arrived in ED. ke1 22:34 Andrew Barbour RN is Primary Nurse. ke1 22:39 Triage completed. ke1 22:43 Gianluca Abdalla MD is Attending Physician. kdr 23:27 Inserted saline lock: 20 gauge. ke1 23:44 No provider procedures requiring assistance completed. ke1 23:44 Arm band placed on right wrist. ke1 23:45 Patient maintains SpO2 saturation greater than 95% on room air. ke1 23:45 Bed in low position. Call light in reach. Side rails up X 1. Side rails up X2. ke1 10/19 00:49 CT Traumagram (Head C Spine CAP W Con) In Process Unspecified. EDMS 02:50 IV discontinued. ke1 Administered Medications: No medications were administered Intake: 10/18 22:39 PO: 0ml; Total: 0ml. ke1 Output: 22:39 Urine: 0ml; Total: 0ml. ke1 Outcome: 10/19 01:59 Discharge ordered by . kdr 02:50 Discharged to home via wheelchair, via taxi ke1 02:50 Condition: good 02:50 Discharge instructions given to patient. 02:52 Patient left the ED. ke1 Signatures: Dispatcher [employer] EDMS Gianluca Abdalla MD MD [facility] Andrew Barbour RN RN ke1 Corrections: (The following items were deleted from the chart) 10/18 22:56 22:39 143.34 kg; Height 6 ft. 3 in.; BMI: 39.5; Pain 4/10; ke1 ke1 23:48 21:40 ED Physician berenice olson notified at 21:40; General Surgeon notified ke1 at 21:40; Radiology notified at 21:40; Respiratory notified at 21:40; Lab notified at 21:40 ke1
[2021-10-19 10:28] VITALS: O2SAT 100
[2021-10-19 10:32] VITALS: BP 120/63; TEMP 98.2
--- NOTE | 2021-10-19 11:40 | RAD REPORT ---
EXAM DESCRIPTION: CT - Head C Spine Cap Norma Murrell - 10/19/2021 6:49 am CLINICAL HISTORY: 71 years, Male, recurrent fall and head and chest injury COMPARISON: 01/21/2017. FINDINGS: Multiple transaxial tomograms of the brain were obtained from the base of the skull to the vertex without contrast. 2-D multiplanar reformats and the coronal and sagittal plane were performed and reviewed. Multiple axial CT images through the cervical spine were obtained at 2 mm slice thickness at 2 mm int erval reconstruction. In addition 2-D multiplanar reformats and the sagittal coronal plane were perfo rmed and reviewed. Contrast-enhanced images of the chest, abdomen and pelvis were performed utilizing 5 mm slice thickne ss at 5 mm interval reconstruction from the lung apices to the ischial tuberosities after the adminis tration of IV contrast. This exam was performed according to our departmental dose-optimization protocol, which includes auto mated exposure control, adjustment of the mA and/or kV according to patient size and/or use of iterat seth reconstruction technique. CT head: Brain parenchyma demonstrate mild prominence of this was and gyri corresponding to mild brai n atrophy. There is no midline shift and/or mass effect. There is no evidence for acute hemorrhage. N o focal areas of hypodensities. Minimal lateral basal ganglia calcifications Lateral ventricles and cisterns displace normal appearance. No intra or extra axial fluid collections were seen. The calv arium is intact with no evidence for fracture. The visualized portions of the paranasal sinuses and o rbits demonstrate to be clear. There is poorly pneumatized left mastoid. CT C-spine: There is diffuse bony osteopenia. The alignment of the vertebral bodies are normal. The re is no evidence of fracture or subluxation. There is anterior spondylosis at C2-T1. Very minimal ea rly degenerative disc disease at C5/C6 C6/C7. The spinal canal demonstrate no evidence for significan t stenosis. Neural foramina demonstrate to be unremarkable. The uncovertebral joints demonstrate to b e normal. There is no prevertebral soft tissue swelling. Minimal carotid bulb calcifications. Sagitta l coronal reformatted images demonstrate no subluxation or bony abnormalities. CT chest: The lungs parenchyma demonstrate minimal dependent atelectatic changes lung bases. There is no evidence for significant pneumothorax. No masses and/or nodules are identified. The trachea mainstem bronchus demonstrate to be normal. There is no significant pleural and/or perica rdial effusions. The thoracic aorta demonstrate minimal intimal calcification. There is no evidence for significant di ssection/or aneurysm. The central pulmonary arteries demonstrate no significant major filling defects that suggest significant pulmonary embolus. The heart is not enlarged. There are minimal coronary ar zachary calcifications. Metallic device within the inferior wall of the right ventricle and metallic dayne ments within the branch of the proximal inferior lingular segment. There is no significant mediastinal and/or hilar lymphadenopathy. The axillary regions demonstrate to be clear. There is diffuse bony osteopenia. The visualized portions of the clavicles, bilateral humeral heads, scapula demonstrate to be within normal limits. No definitive fractures. The thoracic spine demonstra te small with deformity thoracic spine at T5, T6-T7 and minimally at T8 suggesting minimal compressio n deformities. The sternum is unremarkable. Abdomen and pelvis: The liver suggesting a questionable minimal nodular surface lateral segment sugge sting changes of cirrhosis. Otherwise the liver, pancreas, spleen and adrenal glands demonstrate to b e unremarkable, no focal lesions are noted. There is no evidence for significant solid organ injuries . There is a status post cholecystectomy. There is engorged splenic hilum vein extending into the fundus of the stomach/left renal vein corresp onding to gastric varices corresponding to splenorenal shunt from portal hypertension. The kidneys demonstrate normal uptake of contrast media. No evidence for nephrolithiasis and/or hydro nephrosis. Grossly the unopacified stomach, small bowel and large bowel demonstrate to be within normal limits. There is no evidence for bowel dilatation and/or free air. The appendix is unremarkable. There is d iverticulosis within the sigmoid colon There is a anterior umbilical hernia containing omentum. The urinary bladder was partially distended with no gross abnormalities. The prostate gland is norm al. The aorta demonstrate minimal atheromatous plaque formation. There is no retroperitoneal lymp hadenopathy. There is no evidence for ascites or and/or retroperitoneal hemorrhage. The bone windows demonstrate diffuse bony osteopenia of the thoracic spine. Minimal anterior spondylo sis at T12-L3. The transverse processes and spinous process of the lumbar spine demonstrate to be unr emarkable. The sacroiliac joint demonstrate minimal degenerative changes. Sacrum, iliac bones and rupinder ateral hip joints demonstrate to be within normal limits. No definitive evidence for acute bony injur ies. IMPRESSION: Mild brain atrophy. Very minimal degenerative disc disease at C5/C6 C6/C7. Metallic device within the inferior wall of the right ventricle and metallic elements within the bran ch of the proximal inferior lingular segment pulmonary artery. Minimal compression deformities of the thoracic spine at T5, T6-T7 and minimally at T8 suggesting min imal compression deformities, age indeterminate. No evidence for significant solid organ injury. Findings suggestive of cirrhosis and portal hypertension with gastric varices. Sigmoid diverticulosis. Anterior umbilical hernia containing omentum. No definitive evidence for significant intrathoracic, intra-abdominal and/or intrapelvic acute abnorm alities. Electronically signed by: Joseluis Heller MD 10/19/2021 1:17 AM CDT Due to temporary technical issues with the PACS/Fluency reporting system, reports are being signed by the in house radiologist without review as a courtesy to ensure prompt reporting. The interpreting r adiologist is fully responsible for the content of the report.
== END 2021-10-19 02:52 | disposition home or self-care (01) ==
LOC: ER 22:29
DX: S23.41XA Sprain of ribs, initial encounter (principal); S23.429A Unspecified sprain of sternum, initial encounter; S09.90XA Unspecified injury of head, initial encounter; W18.30XA Fall on same level, unspecified, initial encounter; I10 Essential (primary) hypertension; E11.9 Type 2 diabetes mellitus without complications
CPT/HCPCS: 85025; 80048; 36415; 86900; 86850; 86901; 70450; 72125; 71260; 74177; 99284; Q9967

== ENCOUNTER 2022-08-16 10:21 | Inpatient (IN) | payer OTHER, BC ==
--- OUTSIDE RECORDS SUMMARY | 2022-08-16 10:26 | XMS REPORT | Continuity of Care Document ---
:1950 Author Organization [facility] t Address [address] [place] [address] Care Team Providers Name Role Phone DOLLY STARKS Primary Care Physician Unavailable BERNA QUEEN Attending Clinician Unavailable JEET HE Attending Clinician Unavailable JEET HE Admitting Clinician Unavailable Payers Payer Name Policy Type Policy Number Effective Date Expiration Date S kai [facility] FED [id number] 1988 00:00:00 Problems Condition Condition Condition Status Onset Resolution Last Treating Co mments Source Name Details Category Date Date Treatment Clinician Date Alcohol Alcohol Disease [facility] 00 Colon Cirrhosis Cirrhosis Disease Active [facility] of liver of liver 03[facility]12 [facility] without without 00:00: Medical ascites ascites 00 Center Fatty Fatty Disease Active [facility] liver liver 03-12 [facility] disease, disease, 00:00: Medica l nonalcohol nonalcohol 00 Ce nter ic ic Morbid Morbid Disease Active [facility] obesity obesity 03-12 [facility] due to due to 00:00: Medical excess excess 00 Center calories calories Metabolic Metabolic Disease Active [facility] syndrome syndrome 03-12 [facility] 00:[facility]: [facility] 00 Center Essential Essential Disease Active [facility] hypertensi hypertensi 03-12 [facility] 00:00: Medical 00 Center Type 2 Type [address] [facility] diabetes diabetes 03-12 [facility] mellitus mellitus 00:00: Medica l 00 Center Immunity Immunity Disease [facility] status status [facility]12 [facility] testing testing 00:00: Medical 00 Center Allergies, Adverse Reactions, Alerts Allergy Allergy Status Severity Reaction(s) Onset Inactive Treating Comm ents Source Name Type Date Date Clinician NO KNOWN Allergy Active [facility] Family History Family Member Diagnosis Comments Start Date Stop Date Source Natural father Cancer [facility] Natural father Diabetes [facility] Natural father Heart failure [facility] Natural mother Hypertension [facility] Social History Social Habit Start Date Stop Date Quantity Comments Source Alcohol intake 2019-07-08 2019-07-08 Current [facility] 00:00:00 00:00:00 non-drinker of Medical Ce nter alcohol (finding) Tobacco use and 2017-03-12 2017-03-12 Never used [facility] exposure 00:00:00 00:00:00 Medical Center Sex [birth year] [facility] 00:00:00 00:00:00 Medical Center Smoking Status Start Date Stop Date Source Never smoker [facility] Center Medications Ordered Filled Start Stop Current Ordering Indication Dosage Frequency Signature Comments Components Source Medication Medication Date Date Medication? Clinician (SIG) Name Name levothyroxi 2019-0 Yes Cancer 75ug Take [address] ne - screening mcg by [facility] (SYNTHROID, 15:05: mouth Medic al LEVOTHROID) 28 Every Center 75 MCG morning on tablet an empty stomach. losartan 2019- Yes Cancer 50mg QD Take [address] (COZAAR) 50 -02 screening by mouth [facility] MG tablet 15:05: daily. Medica l 28 Center pantoprazol 2019-0 Yes Cancer 40mg QD Take [address] e 02 screening by mouth [facility] (PROTONIX) 15:05: daily . Medi shari 40 MG 28 Center tablet acetaminoph 2020-0 Yes 650mg Take [address] en 1-02 mg by [facility] (TYLENOL) 15:05: mouth Medical 325 MG 28 every 6 Center tablet (six) hours as needed for Pain. metFORMIN 2019-0 Yes 500mg Take [address] [facility] (GLUCOPHAGE 1-02 mg by [facility] ) 500 MG 15:05: mouth 2 Medica l tablet 28 (two) Center times daily with breakfast and dinner. atenolol 2017-[address] (TENORMIN) 0-18 [facility] 100 MG 00:00: Medical tablet 00 Center Procedures This patient has no known procedures. Plan of Care Planned Activity Planned Date Details Comments Source Future Scheduled 2022-07-[address] [facility] Test 00:00:00 (12+) [code = Medical Center DEPRESSION SCREENING (12+)] Future Scheduled 2022-07-07 FALLS RISK SCREENING [facility] Test 00:00:00 [code = FALLS RISK Medical C enter SCREENING] Future Scheduled 2022-03-07 INFLUENZA VACCINE (#1) [facility] 00:00:00 [code = INFLUENZA Medical Ce nter VACCINE (#1)] Future Scheduled 2017-03-[address] [address] [facility] Test 00:00:00 measurement (procedure) [facility] [code = 78895824] Future Scheduled 2002-02-14 SHINGLES VACCINES ([address] [facility] Test 00:00:00 2) [code = SHINGLES Medical Center VACCINES (1 of 2)] Future Scheduled 1971-02-14 DTAP/TDAP/TD VACCINES [facility] Test 00:00:00 (1 - Tdap) [code = Medical C enter DTAP/TDAP/TD VACCINES (1 - Tdap)] Future Scheduled 1970-02-14 HEPATITIS C SCREENING [facility] Test 00:00:00 [code = HEPATITIS C Medical Center SCREENING] Future Scheduled [address] [facility] Test 00:00:00 Counseling and Medical Cente r Screening (12+) [code = Tobacco Cessation Counseling and Screening (12+)] Future Scheduled 1962-02-14 DIABETIC EYE EXAM [code [facility] Test 00:00:00 = DIABETIC EYE EXAM] Medical Center Future Scheduled 1962-02-[address] [facility] Test 00:[facility]:00 examination Medical Center (regime/therapy) [code = 303198144] Future Scheduled 1962-02-14 Urine screening for [facility] Test 00:00:00 protein (procedure) [facility] [code = [id number]] Future Scheduled 1958-02-14 PNEUMOCOCCAL 65+ YRS ([address] [facility] Test 00:00:00 - PCV) [code = Medical Cente r PNEUMOCOCCAL 65+ YRS (1 - PCV)] Future Scheduled 1950 COVID-19 VACCINE (#1) [facility] Test 00:00:00 [code = COVID-[address] VACCINE (#1)] Future Scheduled 1952 CT Colonography (combo) [facility] Test 00:00:00 [code = CT Colonography [facility] (combo)] Future Scheduled 1952 Screening for malignant [facility] Test 00:00:00 neoplasm of colon Medical Ce nter (procedure) [code = [id number]] Future Scheduled 1952 Screening for malignant [facility] Test 00:00:00 neoplasm of colon Medical Ce nter (procedure) [code = 598475672] Future Scheduled 1952 Screening for malignant [facility] Test 00:00:00 neoplasm of colon Medical Ce nter (procedure) [code = 993584285] Future Scheduled 1952 Screening for malignant [facility] Test 00:00:00 neoplasm of colon Medical Ce nter (procedure) [code = 537700230] Future Scheduled 1950 Sigmoidoscopy [code = [facility] Test 00:00:00 Sigmoidoscopy] [facility] Start End Encounter Admission Attending Care Care Encounter Source Date/Time Date/Time Type Type Clinicians Facility Department ID 2020-07-13 2020-07-13 Outpatient [facility] [id number] [facility] 00:00:00 00:00:00 2020-01-10 2020-01-10 Outpatient [facility] [id number] [facility] 00:00:00 00:00:00 Results Test Description Test Time Test Comments Results Result Comments Source ALPHA FETOPROTEIN (AFP), TUMOR MARKER 2019-07-08 17:13:00 Test Item Value Reference Range Interpretation Comme nts ALPHA-FETOPROTEIN (BEAKER) (test code = 1094) 8.1 ng/mL <10.0 BASIC METABOLIC [id number] 16:48:00 Test Item Value Reference Range Interpretation [...] APPLICABLE FOR DIALYSIS PATIEN TS. HEPATIC FUNCTION [id number] 16:48:00 Test Item Value Reference Range Interpretation [...] 347) hemolyzed CBC W/PLT COUNT & AUTO [id number] 16:39:00 Test Item Value Reference Range Interpretation [...] PERCENT (BEAKER) (test code = 2801) PROTHROMBIN [id number] 16:36:00 Test Item Value Reference Range Interpretation Comments PROTIME (BEAKER) (test code = 15.1 seconds 11.9-14.2 H 759) INR (BEAKER) (test code = 370) 1.2 <=5.9 Effective 12/02/2018: PT Reference Range ChangeNew: 11.9-14.2 Previous: 11.7- 14.7RECOMMENDED COUMADIN/WARFARIN INR THERAPY RANGESSTANDARD DOSE: 2.0-3.0 Includes: PROPHYLAXIS for venous thrombosis, systemic embolization; TREATMENT for venous thrombosis and/or pulmonary embolus.HIGH RISK: Target INR is 2.5-3.5 for patients wiht mechanical heart valves.CT, ABDOMEN, [id number] 09:48:00Cirrhosis assess for HCCTriple Phase liver protocolFINAL REPORT ABDOMINAL AND PELVIS CT DATED 12/09/2018 COMPARISON: June 23 8 CLINICAL INFORMATION: cirrhosis assess for HCC TECHNIQUE: [...] surgically absent. No biliary dilatation is noted. Pancreasand adrenals are unremarkable. Both kidneys are normal [...] hepatic mass.3. Periumbilical ventral hernia with herniation asegment of the omentum. Signed: Rufina Hart Verified Date/Time: 12/09/2018 09:48:18 ReadingLocation: [facility] B1 C013Y CT Body Reading Room A FETOPROTEIN (AFP), TUMOR [id number] 14:26:00 Test Item Value Reference Range Interpretation Comments ALPHA-FETOPROTEIN (BEAKER) (test 7.5 ng/mL <10.0 code = 1094) BASIC METABOLIC [id number] 14:16:00 Test Item Value Reference Range Interpretation [...] DIALYSIS PATIEN TS. Specimen slightly ictericHEPATIC FUNCTION [id number] 14:16:00 Test Item Value Reference Range Interpretation [...] 21 U/L 6-55 347) Specimen slightly ictericPROTHROMBIN [id number] 13:54:00 Test Item Value Reference Range Interpretation Comments PROTIME (BEAKER) (test code = 15.4 seconds 11.7-14.7 H 759) INR (BEAKER) (test code = 370) 1.3 <=5.9 RECOMMENDED COUMADIN/WARFARIN INR THERAPY RANGESSTANDARD DOSE: 2.0 - 3.0 Includes: PROPHYLAXIS for venous thrombosis, systemic embolization; TREATMENT for venous thrombosis and/or pulmonary embolus.HIGH RISK: Target INR is 2.5-3.5 for patients with mechanical heart valves.CBC W/PLT COUNT & AUTO [id number] 13:46:00 Test Item Value Reference Range Interpretation [...] (test code = 2801) CT, CHEST, WITH [id number] 14:26:00FINAL REPORT INDICATION:68-year-old male with chest pain [...] ascites. Spleen measures 16 cm coronal long axis.There is no upper abdominal lymphadenopathy or free [...] lower lumbar spinal stenosis. Signed: Kennedy Tavares MDReport Verified Date/Time: 06/23/2018 14:26:12 Reading Location: [facility] C013Y CT Body Reading Room CT, ABDOMEN, WITHOUT [...] ascites. Spleen measures 16 cm coronal long axis.There is no upper abdominal lymphadenopathy or free [...] lower lumbar spinal stenosis. Signed: Kennedy Tavares MDReport Verified Date/Time: 06/23/2018 14:26:12 Reading Location: [facility] B1 C013Y CT Body Reading Room [id number] 11:57:00 Test Item Value Reference Range Interpretation Comments POC-CREATININE 0.9 mg/dL 0.6-1.3 TESTED AT [facility]-KG (BEAKER) (test 245[address] [facility] code = 1859) [place] [address] POC-EGFR 84 mL/min/1.73M2 (BEAKER) (test code = 1860) ALPHA FETOPROTEIN (AFP), TUMOR [id number] 14:11:00 Test Item Value Reference Range Interpretation Comments ALPHA-FETOPROTEIN (BEAKER) (test 7.9 ng/mL <10.0 code = 1094) HEPATIC FUNCTION [id number] 14:03:00 Test Item Value Reference Range Interpretation [...] = 22 U/L 6-55 347) BASIC METABOLIC [id number] 14:03:00 Test Item Value Reference Range Interpretation [...] NOT APPLICABLE FOR DIALYSIS PATIEN TS. PROTHROMBIN [id number] 13:34:00 Test Item Value Reference Range Interpretation Comments PROTIME (BEAKER) (test code = 15.6 seconds 11.7-14.7 H 759) INR (BEAKER) (test code = 370) 1.2 <=5.9 RECOMMENDED COUMADIN/WARFARIN INR THERAPY RANGESSTANDARD DOSE: 2.0 - 3.0 Includes: PROPHYLAXIS for venous thrombosis, systemic embolization; TREATMENT for venous thrombosis and/or pulmonary embolus.HIGH RISK: Target INR is 2.5-3.5 for patients with mechanical heart valves.CBC W/PLT COUNT & AUTO [id number] 13:25:00 Test Item Value Reference Range Interpretation [...] code = 2801) ALPHA FETOPROTEIN (AFP), TUMOR [id number] 17:40:00 Test Item Value Reference Range Interpretation Comments ALPHA-FETOPROTEIN (BEAKER) (test 8.6 ng/mL <10.0 code = 1094) HEPATIC FUNCTION [id number] 17:34:00 Test Item Value Reference Range Interpretation [...] = 19 U/L 6-55 347) BASIC METABOLIC [id number] 17:34:00 Test Item Value Reference Range Interpretation [...] U/L 9-64 (test code = 364) PROTHROMBIN [id number] 17:11:00 Test Item Value Reference Range Interpretation Comments PROTIME (BEAKER) (test code = 16.2 seconds 11.7-14.7 H 759) INR (BEAKER) (test code = 370) 1.3 <=5.9 RECOMMENDED COUMADIN/WARFARIN INR THERAPY RANGESSTANDARD DOSE: 2.0 - 3.0 Includes: PROPHYLAXIS for venous thrombosis, systemic embolization; TREATMENT for venous thrombosis and/or pulmonary embolus.HIGH RISK: Target INR is 2.5-3.5 for patients with mechanical heart valves.CBC W/PLT COUNT & AUTO [id number] 17:05:00 Test Item Value Reference Range Interpretation [...] % 0-1 PERCENT (BEAKER) (test code = 8361) POCT-GLUCOSE [id number] 12:40:00 Test Item Value Reference Range Interpretation Comments POC-GLUCOSE METER 205 mg/dL 70-110 H TESTED AT [facility] 7200 ([facility]) (test code ELIZABETH Balderas [place] = 1538) [place] [address] MR, ABDOMEN, [id number] 13:49:00FINAL REPORT TECHNIQUE: MRI of the abdomen [...] fluid.LYMPH NODES: No lymphadenopathy.VESSELS: Portal system and hepatic veins are patent. Main portal vein measures 1.4 cm in diameter. 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 GI TRACT:No distention or wall thickening. BONES AND SOFT TISSUES: Unremarkable. IMPRESSION:Cirrhosis with portal hypertension. No suspicious liver lesions. Signed: Troy Fermineport Verified Date/Time: 09/25/2017 13:49:59 Reading Location: [address] Radiology Reading Room [id number] 12:23:00 Test Item Value Reference Range Interpretation Comments POC-CREATININE 0.9 mg/dL 0.6-1.3 TESTED AT [facility]-KG (Chargeback) (test 074 [facility] code = 1859) [place] [address] POC-EGFR 85 mL/min/1.73M2 (Chargeback) (test code = 1860) ALPHA FETOPROTEIN (AFP), TUMOR [id number] 18:16:00 Test Item Value Reference Range Interpretation Comments ALPHA-FETOPROTEIN (BEAKER) (test 8.7 ng/mL <10.0 code = 1094) BASIC METABOLIC [id number] 18:01:00 Test Item Value Reference Range Interpretation [...] APPLICABLE FOR DIALYSIS PATIEN TS. HEPATIC FUNCTION [id number] 18:01:00 Test Item Value Reference Range Interpretation [...] slightly (test code = 347) hemolyzed PROTHROMBIN [id number] 17:25:00 Test Item Value Reference Range Interpretation Comments PROTIME (BEAKER) (test code = 16.0 seconds 11.7-14.7 H 759) INR (BEAKER) (test code = 370) 1.3 <=5.9 RECOMMENDED COUMADIN/WARFARIN INR THERAPY RANGESSTANDARD DOSE: 2.0 - 3.0 Includes: PROPHYLAXIS for venous thrombosis, systemic embolization; TREATMENT for venous thrombosis and/or pulmonary embolus.HIGH RISK: Target INR is 2.5-3.5 for patients with mechanical heart valves.CBC W/PLT COUNT & AUTO [id number] 17:12:00 Test Item Value Reference Range Interpretation [...] PERCENT (BEAKER) (test code = 2801) POCT-GLUCOSE [id number] 08:27:00 Test Item Value Reference Range Interpretation Comments POC-GLUCOSE METER 205 mg/dL 70-110 H TESTED AT [facility] (test code = RYANN Pruett [facility] 1538) [address] MR, ABDOMEN, [id number] 15:58:00MRI liver protocolI liver protocolFINAL REPORT TECHNIQUE: MRI of the [...] septation. PERITONEUM/RETROPERITONEUM: No free fluid.LYMPH NODES: No lymphadenopathy. VESSELS: Portal system and hepatic veins are patent. Main portal vein measures 1.2 cm in diameter. 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 GI TRACT: No distention or wall thickening. BONES AND SOFT TISSUES: Unremarkable. IMPRESSION:Cirrhosis with portal hypertension. No suspicious liver lesions. Signed: Troy Fermineport Verified Date/Time: 03/12/2017 15:58:26 Reading Location: [facility] C013Y CT Body Reading Room TITIS B CORE ANTIBODY, [id number] 15:34:00 Test Item Value Reference Range Interpretation Comments HEPATITIS B CORE TOTAL ANTIBODY Nonreactive Nonreactive (BEAKER) (test code = 497) HEPATIC FUNCTION [id number] 15:09:00 Test Item Value Reference Range Interpretation [...] = 24 U/L 6-55 347) BASIC METABOLIC [id number] 15:09:00 Test Item Value Reference Range Interpretation [...] NOT APPLICABLE FOR DIALYSIS PATIEN TS. PROTHROMBIN [id number] 14:58:00 Test Item Value Reference Range Interpretation Comments PROTIME (BEAKER) (test code = 15.4 seconds 11.7-14.7 H 759) INR (BEAKER) (test code = 370) 1.2 <=5.9 RECOMMENDED COUMADIN/WARFARIN INR THERAPY RANGESSTANDARD DOSE: 2.0 - 3.0 Includes: PROPHYLAXIS for venous thrombosis, systemic embolization; TREATMENT for venous thrombosis and/or pulmonary embolus.HIGH RISK: Target INR is 2.5-3.5 for patients with mechanical heart valves.CBC W/PLT COUNT & AUTO [id number] 14:42:00 Test Item Value Reference Range Interpretation [...] NEUTROPHILS ABSOLUTE COUNT 3.77 K/ L 1.78-5.38 ([facility]) (test code = 670) LYMPHOCYTES ABSOLUTE COUNT 1.30 K/ L 1.32-3.57 L (AKER) (test code = 414) MONOCYTES ABSOLUTE COUNT (AKER) 0.56 K/ L 0.30-0.82 (test code = 415) EOSINOPHILS ABSOLUTE COUNT 0.16 K/ L 0.04-0.54 (AKER) (test code = 416) BASOPHILS ABSOLUTE COUNT (AKER) 0.04 K/ L 0.01-0.08 (test code = 417) IMMATURE GRANULOCYTES-RELATIVE 0 % 0-1 PERCENT ([facility]) (test code = 2805) [id number] 13:51:00 Test Item Value Reference Range Interpretation Comments POC-CREATININE 0.9 mg/dL 0.6-1.3 TESTED AT [facility] 6720 ([facility]) (test [place] code = 8103) [address] POC-EGFR ([facility]) 85 mL/min/1.73M2 (test code = 1890)
[2022-08-16 11:11] LABS: Absolute Lymphocytes (CBC) 0.6 K/uL (0.7-4.9); Hematocrit 35.9 % (39.6-49.0); Lymphocytes % 21.6 % (15.3-44.8); MCV 113.5 fL (80-100); MPV 6.9 fL (7.6-11.3); RBC Red Blood Cell Count 3.16 M/uL (4.33-5.43)
[2022-08-16 11:27] LABS: Albumin 2.3 g/dL (3.4-5.0); Bilirubin Total 2.3 mg/dL (0.2-1.0); Potassium 3.7 mmol/L (3.5-5.1); Protein, Total 7.4 g/dL (6.4-8.2); Troponin High Sensitivity 7.2 pg/mL (<58.9)
[2022-08-16] MEDS ORDERED: METHYLPREDNISOLONE 125 MG INJ ONE (11:49)
[2022-08-16] MEDS ORDERED: ALBUTEROL 2.5 MG/3 ML NEB SOL ONE (11:50)
[2022-08-16] MEDS ORDERED: IPRATROPIUM BROM 0.5MG/2.5ML ONE (11:50)
--- NOTE | 2022-08-16 11:57 | RAD REPORT ---
EXAM DESCRIPTION: Garry Geiger And Favio (2 Views)08/16/2022 11:01 am CLINICAL HISTORY: Cough COMPARISON: 2017 FINDINGS: Moderate right pleural effusion suspected with basilar atelectasis. Left lung appears clear. Heart size is difficult to determine secondary to adjacent pleural effusion.
[2022-08-16 12:03] LABS: Blood Morphology Comment NOTED (NOT SEEN); Platelet Estimate ADEQ; White Blood Cell Scan OK (OK)
[2022-08-16 12:04] LABS: Macrocytosis 1+
[2022-08-16 12:24] LABS: SARS-COV-2 RT PCR NEGATIVE (NEGATIVE)
--- NOTE | 2022-08-16 13:46 | RAD REPORT ---
EXAM DESCRIPTION: CT - Thorax W/ Con - 08/16/2022 1:37 pm CLINICAL HISTORY: effusion COMPARISON: Chest Pa And Lat (2 Views) dated 08/16/2022 TECHNIQUE: Dynamically enhanced axial 3 mm thick images of the chest were obtained during administra tion of <100> mL Isovue 370 IV contrast. Coronal and oblique reconstruction images were generated and reviewed. Exam utilizes a protocol for optimal evaluation of pulmonary arterial tree. Maximum intensity projections 3D imaging was utilized All CT scans are performed using dose optimization technique as appropriate and may include automated exposure control or mA/KV adjustment according to patient size. FINDINGS: Chest Wall: No suspicious thyroid nodules or pathologic lymphadenopathy. Lungs: Atelectasis as a result of the moderate to large right pleural effusion. Question embolization coils in the right lower lobe. Pleura: Large right pleural effusion. Mediastinum/irma: No pathologic lymphadenopathy. Pulmonary arteries/Aorta: No filling defect identified. No aortic aneurysm. Mild coronary artery calc ifications . Heart: No significant pericardial effusion. Normal heart size. Upper abdomen: No acute abnormality.Cirrhotic liver morphology. Large venous collaterals in the left upper quadrant. Bones: No acute abnormality. Bridging osteophytes in the spine. Remote sternal fracture. IMPRESSION: Moderate to large right pleural effusion with presumably underlying atelectasis. The fan ology is unclear. It could be related to hepatic hydrothorax.
--- NOTE | 2022-08-16 14:31 | EDPHYS ---
Physician Documentation [facility] Name: Solo Lin Jr Age: 72 yrs Sex: Male : 1950 Arrival Date: 08/16/2022 Time: 10:23 Bed 19 Private MD: Neal Claros T ED Physician Tom Adkins HPI: 08/16 11:41 This 72 yrs old Male presents to ER via Wheelchair with complaints of Shortness Of rt Breath, Low O2 84. 11:42 Patient with history of COPD presents to the ED with 1 week of progressively worsening rt dyspnea exertion. The patient noticed today that his oxygen level dropped about 74 when he was walking, improved to 96 with rest. The patient denies any significant dyspnea while sitting, states that his voice is raspy from the rapid breathing. The patient denies chest pain, other acute complaints. Symptoms are moderate severity, no other aggravating or alleviating factors.. Historical: - PMHx: 10:40 Gout; Hypertensive disorder; Hypothyroidism; Migraines; NIDDM; PUD; aa5 - Immunization history:: Adult Immunizations unknown. - Social history:: Smoking status: Patient denies any tobacco usage or history of. - Family history:: not pertinent. ROS: 11:42 Constitutional: Negative for fever, chills, and weight loss, ENT: Negative for injury, rt pain, and discharge, Cardiovascular: Negative for chest pain, palpitations, and edema, Abdomen/GI: Negative for abdominal pain, nausea, vomiting, diarrhea, and constipation, MS/Extremity: Negative for injury and deformity, Skin: Negative for injury, rash, and discoloration, Neuro: Negative for headache, weakness, numbness, tingling, and seizure, Psych: Negative for depression, anxiety, suicide ideation, homicidal ideation, and hallucinations. 11:42 Respiratory: Positive for cough, dyspnea on exertion, shortness of breath. Exam: 11:42 Constitutional: This is a well developed, well nourished patient who is awake, alert, rt and in no acute distress. Head/Face: Normocephalic, atraumatic. Chest/axilla: Normal chest wall appearance and motion. Nontender with no deformity. No lesions are appreciated. Cardiovascular: Regular rate and rhythm with a normal S1 and S2. No gallops, murmurs, or rubs. Normal PMI, no JVD. No pulse deficits. Abdomen/GI: Soft, non-tender, with normal bowel sounds. No distension or tympany. No guarding or rebound. No evidence of tenderness throughout. Skin: Warm, dry with normal turgor. Normal color with no rashes, no lesions, and no evidence of cellulitis. MS/ Extremity: Pulses equal, no cyanosis. Neurovascular intact. Full, normal range of motion. Neuro: Awake and alert, GCS 15, oriented to person, place, time, and situation. Cranial nerves II-XII grossly intact. Motor strength 5/5 in all extremities. Sensory grossly intact. Cerebellar exam normal. Normal gait. Psych: Awake, alert, with orientation to person, place and time. Behavior, mood, and affect are within normal limits. 11:42 ECG was reviewed by the Attending Physician. 11:42 Respiratory: Diminished breath sounds with wheezing heard on all lung ritchie, no respiratory distress. Vital Signs: 10:35 BP 114 / 46; Pulse 72; Resp 18 S; Temp 98.9(TE); Pulse Ox 95% on R/A; Weight 142.88 kg aa5 (R); Height 6 ft. 3 in. (190.50 cm) (R); 11:30 BP 118 / 49; Pulse 58; Resp 18; Pulse Ox 96% on R/A; db 12:00 BP 127 / 55; Pulse 56; Resp 18; Pulse Ox 100% on R/A; db 13:00 BP 150 / 67; Pulse 78; Resp 16; Pulse Ox 99% on R/A; db 15:30 BP 123 / 47; Pulse 78; Resp 20; Pulse Ox 100% on 2 lpm NC; db 16:30 BP 124 / 50; Pulse 76; Resp 18; Pulse Ox 96% on 2 lpm NC; db 10:35 Body Mass Index 39.37 (142.88 kg, 190.50 cm) aa5 MDM: 10:37 Patient medically screened. rt 15:38 Differential diagnosis: pneumonia, Pneumothorax pulmonary edema. Data reviewed: vital rt signs, nurses notes, old medical records, lab test result(s), EKG. Consideration of Admission/Observation Patient was admitted/placed on observation. Management of patient was discussed with the following: Condenser Tester: Spoke with pulmonology, agrees to admit. I considered the following discharge prescriptions or medication management in the emergency department Antibiotics: At this time antibiotics are not recommended. Independent interpretation of the following test(s) in the Emergency Department CT Scan: My interpretation is Visualized effusion. Care significantly affected by the following chronic conditions: Chronic Obstructive Pulmonary Disease. Counseling: I had a detailed discussion with the patient and/or guardian regarding: the historical points, exam findings, and any diagnostic results supporting the discharge/admit diagnosis, lab results, radiology results, the need for further work-up and treatment in the hospital. Response to treatment: the patient's symptoms have markedly improved after treatment. 08/16 10:46 Order name: CBC with Diff; Complete Time: 12:53 rt 08/16 10:46 Order name: CMP; Complete Time: 12:00 rt 08/16 10:46 Order name: Troponin High Sensitivity; Complete Time: 12:00 rt 08/16 10:46 Order name: BNP; Complete Time: 12:00 rt 08/16 10:46 Order name: COVID-19/FLU A+B; Complete Time: 12:53 rt 08/16 12:04 Order name: CBC Smear Scan; Complete Time: 12:53 EDMS 08/16 10:46 Order name: Chest Pa And Lat (2 Views) XRAY; Complete Time: 12:00 rt 08/16 13:03 Order name: CT Chest W/ Con; Complete Time: 13:57 rt 08/16 14:33 Order name: CBC with Automated Diff EDMS 08/16 14:33 Order name: CBC with Automated Diff EDMS 08/16 14:33 Order name: Comprehensive Metabolic Panel EDMS 08/16 14:33 Order name: Comprehensive Metabolic Panel EDMS 08/16 14:35 Order name: Protime (+INR) EDMS 08/16 14:35 Order name: Chest Lateral Decubitus EDMS 08/16 10:46 Order name: EKG; Complete Time: 10:47 rt 08/16 10:46 Order name: EKG - Nurse/Tech; Complete Time: 11:19 rt 08/16 14:33 Order name: Regular EDMS 08/16 14:42 Order name: Echo with Doppler EDMS EC:42 Rate is 58 beats/min. Rhythm is regular, Sinus bradycardia with No ectopy. QRS [place] is rt Normal. [place] interval is normal. QRS interval is normal. QT interval is prolonged at 498 msec. No Q waves. Clinical impression: NSR w/ Non-specific ST/T Changes. Interpreted by me. Administered Medications: 11:45 Drug: DuoNeb (albuterol 2.5 mg, ipratropium 0.5 mg) (3:1) (2.5 mg - 0.5 mg) 3 ml Route: db Nebulizer; 15:52 Follow up: Response: No adverse reaction db 11:45 Drug: SOLU-Medrol (methylPrednisoLONE) 125 mg Route: IVP; Site: right antecubital; db 15:51 Follow up: Response: No adverse reaction db Disposition Summary: 08/16/22 14:30 Hospitalization Ordered Hospitalization Status: Inpatient Admission rt Provider: Medardo Chaparro [facility] Condition: Fair rt Problem: new rt Symptoms: have improved rt Bed/Room Type: Standard rt Room Assignment: 221(08/16/22 15:30) dw Diagnosis - Pleural effusion, not elsewhere classified rt - Acute respiratory failure with hypoxia rt Forms: - Medication Reconciliation Form rt - SBAR form rt Signatures: Dispatcher [employer] Cinthia Ley RN RN dw Tonya Calles RN RN aa5 Kelly Sutton RN RN db Tom Adkins MD MD rt Corrections: (The following items were deleted from the chart) 15:30 14:30 rt dw
--- NOTE | 2022-08-16 14:31 | ER ---
Nurse's Notes [facility] Name: Solo Lin Jr Age: 72 yrs Sex: Male : 1950 Arrival Date: 08/16/2022 Time: 10:23 Bed 19 Private MD: Neal Claros T Diagnosis: Pleural effusion, not elsewhere classified;Acute respiratory failure with hypoxia Presentation: 08/16 10:35 Chief complaint: Patient states: "my oxygen was 74% after walking around yesterday and aa5 today it was 85%". pt reports SOB on exertion x 2 weeks ago, O2 sat 95-96% RA at this time, no labored respirations noted. 10:35 Coronavirus screen: shortness of breath. Ebola Screen: Patient denies travel to an [facility]-affected area in the 21 days before illness onset. Initial Sepsis Screen: Does the patient meet any 2 criteria? No. Patient's initial sepsis screen is negative. Does the patient have a suspected source of infection? No. Patient's initial sepsis screen is negative. Risk Assessment: Do you want to hurt yourself or someone else? Patient reports no desire to harm self or others. Onset of symptoms was August 2022. 10:35 Acuity: GAVIN 3 aa5 10:35 Method Of Arrival: Wheelchair aa5 Triage Assessment: 15:43 General: Appears comfortable, Behavior is calm, cooperative. Respiratory: Reports db shortness of breath at rest on exertion Onset: The symptoms/episode began/occurred gradually. Respiratory: Airway is patent Respiratory effort is even, labored, Respiratory pattern is regular, symmetrical, the patient has severe shortness of breath. Historical: - PMHx: 10:40 Gout; Hypertensive disorder; Hypothyroidism; Migraines; NIDDM; PUD; aa5 - Immunization history:: Adult Immunizations unknown. - Social history:: Smoking status: Patient denies any tobacco usage or history of. - Family history:: not pertinent. Screenin:07 [facility] ED Fall Risk Assessment (Adult) History of falling in the last 3 months, db including since admission No falls in past 3 months (0 pts) Confusion or Disorientation No (0 pts) Intoxicated or Sedated No (0 pts) Impaired Gait Yes (1 pt) Mobility Assist Device Used Yes (1 pt) Altered Elimination No (0 pt) Score/Fall Risk Level. [facility] ED Fall Risk Assessment (Adult) Score/Fall Risk Level 0 - 2 = Low Risk Oriented to surroundings, Maintained a safe environment, Educated pt \\T\\ family on fall prevention, incl call for assistance when getting out of bed. Abuse screen: Denies threats or abuse. Denies injuries from another. Nutritional screening: No deficits noted. Tuberculosis screening: No symptoms or risk factors identified. Assessment: 12:06 Reassessment: Patient appears in no apparent distress at this time. Patient and/or db family updated on plan of care and expected duration. Pain level reassessed. Patient is alert, oriented x 3, equal unlabored respirations, skin warm/dry/pink. SOB that has graduallys gotten worse. General: Appears in no apparent distress. Behavior is calm, cooperative. Pain: Denies pain. Neuro: Level of Consciousness is awake, alert, obeys commands, Oriented to person, place, time, situation. Cardiovascular: Rhythm is regular. Respiratory: Airway is patent Respiratory effort is even, unlabored, Breath sounds are coarse bilaterally. GI: No deficits noted. No signs and/or symptoms were reported involving the gastrointestinal system. : No deficits noted. No signs and/or symptoms were reported regarding the genitourinary system. 13:00 Reassessment: Patient appears in no apparent distress at this time. Patient and/or db family updated on plan of care and expected duration. Pain level reassessed. Patient is alert, oriented x 3, equal unlabored respirations, skin warm/dry/pink. 13:53 Reassessment: Patient appears in no apparent distress at this time. pt returned to room db from CT. 15:15 Reassessment: patient ambulatory to restroom with cane. db 15:42 Reassessment: Patient appears in no apparent distress at this time. Patient and/or db family updated on plan of care and expected duration. Pain level reassessed. Patient is alert, oriented x 3, equal unlabored respirations, skin warm/dry/pink. 15:51 Reassessment: Called to give report to RN. RN unavailable and will call me back. db 16:09 Reassessment: Called to give report 2nd time. Nurse is in with a different patient. db States will call me back. Will notify charge. Vital Signs: 10:35 BP 114 / 46; Pulse 72; Resp 18 S; Temp 98.9(TE); Pulse Ox 95% on R/A; Weight 142.88 kg aa5 (R); Height 6 ft. 3 in. (190.50 cm) (R); 11:30 BP 118 / 49; Pulse 58; Resp 18; Pulse Ox 96% on R/A; db 12:00 BP 127 / 55; Pulse 56; Resp 18; Pulse Ox 100% on R/A; db 13:00 BP 150 / 67; Pulse 78; Resp 16; Pulse Ox 99% on R/A; db 15:30 BP 123 / 47; Pulse 78; Resp 20; Pulse Ox 100% on 2 lpm NC; db 16:30 BP 124 / 50; Pulse 76; Resp 18; Pulse Ox 96% on 2 lpm NC; db 10:35 Body Mass Index 39.37 (142.88 kg, 190.50 cm) aa5 Vitals: 11:30 Cardiac Rhythm Assessment Regular Sinus rhythm. db ED Course: 10:23 Patient arrived in ED. mr 10:24 Neal Claros MD is Private Physician. mr 10:26 Tom Adkins MD is Attending Physician. rt 10:39 Arm band placed on. aa5 10:40 Triage completed. aa5 10:59 Vesna Isaacs, RN is Primary Nurse. iw 11:03 Chest Pa And Lat (2 Views) XRAY In Process Unspecified. EDMS 11:04 Initial lab(s) drawn, by me, sent to lab. Inserted saline lock: 20 gauge in right iw antecubital area, using aseptic technique. Blood collected. 11:19 COVID-19/FLU A+B Sent. mm9 11:19 BNP Sent. mm9 11:19 Troponin High Sensitivity Sent. mm9 11:19 CMP Sent. mm9 12:05 Kelly Sutton, RN is Primary Nurse. db 12:07 Patient has correct armband on for positive identification. Bed in low position. Call db light in reach. Side rails up X 1. 12:30 Client placed on continuous cardiac and pulse oximetry monitoring. NIBP monitoring db applied. Lights dimmed. Warm blanket given. 13:38 CT Chest W/ Con In Process Unspecified. EDMS 14:29 Darrion Chaparro MD is Hospitalizing Provider. rt 14:29 Medardo Chaparro MD is Hospitalizing Provider. rt 15:42 No provider procedures requiring assistance completed. Patient admitted, IV remains in db place. 16:34 Report given to SHAYNA Marcum. db Administered Medications: 11:45 Drug: DuoNeb (albuterol 2.5 mg, ipratropium 0.5 mg) (3:1) (2.5 mg - 0.5 mg) 3 ml Route: db Nebulizer; 15:52 Follow up: Response: No adverse reaction db 11:45 Drug: SOLU-Medrol (methylPrednisoLONE) 125 mg Route: IVP; Site: right antecubital; db 15:51 Follow up: Response: No adverse reaction db Medication: 15:43 VIS not applicable for this client. db Outcome: 14:30 Decision to Hospitalize by Provider. rt 15:42 Admitted to Tele db 15:42 Condition: stable 15:42 Instructed on the need for admit. 17:14 Patient left the ED. iw Signatures: Dispatcher [employer] Soila Melara Irene, RN RN iw Tonya Calles RN RN aa5 Kelly Sutton RN RN db Martinez, Maria mm9 Tom Adkins MD MD rt
[2022-08-16] MEDS: ARFORMOTEROL TARTRATE 15 MCG/2 ML VIAL.NEB NEB SCH ×2 (14:40→19:10)
--- NOTE | 2022-08-16 14:40 | P.HP ---
Certification for Inpatient With expected LOS: >2 Midnights Practitioner: I am a practitioner with admitting privileges, knowledge of patient current condition, hospital course, and medical plan of care. Services: Services provided to patient in accordance with Admission requirements found in Title 42 Section 412.3 of the Code of Federal Regulations Patient History Date of Service: 08/16/22 Reason for admission: Shortness of breath hypoxemia History of Present Illness: Patient is 72 years of age pleasant gentleman admitted with worsening dyspnea on mild exertion the past 3 weeks has a history of cirrhosis of the liver secondary to fatty liver condition has COPD patient has never smoked was found to have a moderate-sized right-sided pleural effusion is the reason for admission denies any fever chills chest pain Allergies No Known Sanjiv Allergy (Uncoded 01/22/17 00:24) Unknown No Known Aller Allergy (Uncoded 01/21/17 16:21) Unknown Home Medications: Cyanocobalamin (Vitamin B-12) [Vitamin B-12] 1 tab PO DAILY 01/22/17 Levothyroxine Sodium 1 tab PO DAILY 01/22/17 Docusate [Colace Cap*] 100 mg PO DAILY #30 cap 01/26/17 Ferrous Sulfate [Iron] 325 mg PO BID #60 tablet 01/26/17 Pantoprazole [Protonix Tab] 40 mg PO BID #60 tab 01/26/17 Propranolol [Inderal] 20 mg PO BID #120 tab 01/26/17 levoFLOXacin [Levaquin] 500 mg PO DAILY #7 tab 01/26/17 metroNIDAZOLE [Flagyl] 500 mg PO Q8H #21 tablet 01/26/17 - Past Medical/Surgical History Diabetic: Yes -: Diabetes mellitus type 2 -: Hypertension -: Migraines -: Hypothyroidism -: Obesity -: GERD -: Gout -: History of gastric ulcer, gastric erosion -: History of colon polyps -: Cirrhosis of the liver secondary to fatty liver -: Cataract surgery -: Cholecystectomy -: Appendectomy Psychosocial/ Personal History: The patient is single. He has no children. He previously worked at the [employer] [place]. - Family History Father -: Diabetes, Cancer Notes: CHF Mother -: Heart disease - Social History Alcohol use: No CD- Drugs: No Caffeine use: Yes Review of Systems 10-point ROS is otherwise unremarkable General: Weakness Respiratory: Shortness of Breath Cardiovascular: Edema Physical Examination - Vital Signs Temperature: 98.9 F Blood Pressure: 114/46 Pulse: 72 Respirations: 18 Pulse Ox (%): 99 - Physical Exam HEENT: Atraumatic Neck: Supple Respiratory: Diminished (Diminished air entry in the right base) Cardiovascular: Regular rate/rhythm, Normal S1 S2, Edema (Edema) Gastrointestinal: Normal bowel sounds, Soft and benign, Non-distended - Studies Laboratory Data (last 24 hrs) 08/16/22 10:50: Sodium 139, Potassium 3.7, BUN 17, Creatinine 1.09, Glucose 153 H, Total Bilirubin 2.3 H, AST 38 H, ALT 22, Alkaline Phosphatase 157 H 08/16/22 10:50: WBC 3.00 L, Hgb 12.5 L, Hct 35.9 L, Plt Count 105 L Assessment and Plan - Problems (Diagnosis) (1) Pleural effusion Current Visit: Yes Status: Acute Plan: Patient is 72 years of age admitted with progressive dyspnea over the past 3- week eyes any fever chills he has a moderate-sized effusion on the right side addition patient has cirrhosis of the liver from a fatty liver history of gastric varices plan to admit diuresis thoracentesis bilateral decubitus of the chest is quite possible that he has a hepatic hydrothorax on the right side the patient's conditions improved able to ambulate may have and arrange for an outpatient thoracentesis (2) COPD (chronic obstructive pulmonary disease) Current Visit: Yes Status: Acute Plan: Patient has a history of COPD will start on some bronchodilator therapy could be responsible for his shortness of breath he is never smoked add bronchodilators steroid patient does not use any bronchodilators at home Qualifiers: COPD type: unspecified COPD Qualified Code(s): J44.9 - Chronic obstructive pulmonary disease, unspecified - Advance Directives Does patient have a Living Will: No Does patient have a Durable POA for Healthcare: No
--- NOTE | 2022-08-16 15:35 | RAD REPORT ---
EXAM DESCRIPTION: RAD - Chest Lateral Decubitus - 08/16/2022 3:22 pm CLINICAL HISTORY: Right-sided pleural effusion COMPARISON: Thorax W/ Con dated 08/16/2022 FINDINGS: Moderate right free-flowing layering pleural effusion. IMPRESSION: Free-flowing right-sided pleural effusion.
[2022-08-16 15:51] LABS: Protime INR 1.38
[2022-08-16] MEDS ORDERED: VITAMIN K (ADULT) 10 MG/ML SQ ONE (16:43)
[2022-08-16 17:34] VITALS: BMI 39.4
[2022-08-16] MEDS: FUROSEMIDE 40 MG/4 ML VIAL IV SCH (17:54)
[2022-08-16] MEDS: IPRATROPIUM BROM 0.5MG/2.5ML NEB SCH (19:10)
[2022-08-16] MEDS: METHYLPREDNISOLONE 40 MG INJ IV SCH (20:14)
[2022-08-17] MEDS: IPRATROPIUM BROM 0.5MG/2.5ML NEB SCH ×4 (01:15→19:25)
[2022-08-17 03:40] LABS: Absolute Lymphocytes (CBC) 0.3 K/uL (0.7-4.9); Hematocrit 33.3 % (39.6-49.0); MPV 7.4 fL (7.6-11.3); RBC Red Blood Cell Count 2.93 M/uL (4.33-5.43)
[2022-08-17 03:41] LABS: MCV 113.7 fL (80-100)
[2022-08-17 03:51] LABS: Albumin 2.1 g/dL (3.4-5.0); Potassium 3.8 mmol/L (3.5-5.1); Protein, Total 7.1 g/dL (6.4-8.2)
[2022-08-17] MEDS: ARFORMOTEROL TARTRATE 15 MCG/2 ML VIAL.NEB NEB SCH (07:49)
[2022-08-17] MEDS: METHYLPREDNISOLONE 40 MG INJ IV SCH (08:56)
[2022-08-17] MEDS: FUROSEMIDE 40 MG/4 ML VIAL IV SCH (08:56)
--- NOTE | 2022-08-17 10:30 | P.PN ---
Subjective Date of Service: 08/17/22 Chief Complaint: Shortness of breath hypoxemia Subjective: Improving (Patient is doing better edema has declined still has shortness of breath on moderate exertion) Review of Systems General: Weakness Respiratory: Shortness of Breath Physical Examination - Vital Signs Temperature: 97.8 F Blood Pressure: 133/51 Pulse: 72 Respirations: 18 Pulse Ox (%): 100 - Physical Exam General: Alert, Oriented x3 Neck: Supple Respiratory: Clear to auscultation bilaterally, Other (Edema declined) - Studies Laboratory Data (last 24 hrs) 08/16/22 10:50: Sodium 139, Potassium 3.7, BUN 17, Creatinine 1.09, Glucose 153 H, Total Bilirubin 2.3 H, AST 38 H, ALT 22, Alkaline Phosphatase 157 H 08/16/22 10:50: WBC 3.00 L, Hgb 12.5 L, Hct 35.9 L, Plt Count 105 L Assessment And Plan - Current Problems (Diagnosis) (1) Pleural effusion Current Visit: Yes Status: Acute Plan: Patient admitted with shortness of breath and effusion continue with diuresis labs reviewed improving (2) COPD (chronic obstructive pulmonary disease) Current Visit: Yes Status: Acute Plan: Continue with bronchodilator therapy he does not take any inhalers at home Qualifiers: COPD type: unspecified COPD Qualified Code(s): J44.9 - Chronic obstructive pulmonary disease, unspecified
--- NOTE | 2022-08-17 11:53 | RAD REPORT ---
EXAM DESCRIPTION: RAD - Chest Single View - 08/17/2022 11:33 am CLINICAL HISTORY: Shortness of breath pleural effusion COMPARISON: Chest Pa And Lat (2 Views) dated 08/16/2022; Chest Single View dated 01/25/2017; Chest Sin gle View dated 01/21/2017; CHEST PA AND LAT 2 VIEW dated 03/21/2014; Thorax W/ Con dated 08/16/2022 FINDINGS: Lines: None. Lungs: Atelectasis as result of the effusion. Some vascular prominence noted. Embolization coils in l king. Pleural: Right pleural effusion Cardiac: Similar size and configuration. Mediastinum: Within normal limits. Bones: No acute fractures. Other: None IMPRESSION: Moderate appearing right-sided pleural effusion is unchanged. There is likely underlying atelectasis. Mild interstitial edema.
--- NOTE | 2022-08-17 14:18 | P.PN ---
Subjective Date of Service: 08/17/22 Chief Complaint: Shortness of breath hypoxemia Patient states that he feels much better today. He has been coughing intermittently otherwise denies shortness of breath at the moment. He also denies any chest pain. Physical Examination - Vital Signs Temperature: 98.4 F Blood Pressure: 117/52 Pulse: 95 Respirations: 20 Pulse Ox (%): 97 Assessment And Plan - Current Problems (Diagnosis) (1) COPD exacerbation Current Visit: Yes Status: Acute (2) COPD with acute exacerbation Current Visit: Yes Status: Acute (3) Diabetes mellitus Onset Date: 01/22/17 Current Visit: No Status: Chronic Qualifiers: Diabetes mellitus type: type 2 Diabetes mellitus retirement insulin use: without retirement use Diabetes mellitus complication status: without complication Qualified Code(s): E11.9 - Type 2 diabetes mellitus without complications (4) Hypertension Onset Date: 01/22/17 Current Visit: No Status: Chronic Qualifiers: Hypertension type: essential hypertension Qualified Code(s): I10 - Ess ential (primary) hypertension (5) Hypothyroidism Onset Date: 01/22/17 Current Visit: No Status: Chronic Qualifiers: Hypothyroidism type: unspecified Qualified Code(s): E03.9 - Hypothyroidism, unspecified (6) Obesity Current Visit: No Status: Chronic Qualifiers: Obesity type: unspecified obesity type Obesity classification: adult class 3 (BMI >= 40) Body mass index: BMI 40.0-44.9 (7) Cirrhosis Current Visit: No Status: Suspected Qualifiers: Hepatic cirrhosis type: unspecified hepatic cirrhosis Ascites presence: without ascites Qualified Code(s): K74.60 - Unspecified cirrhosis of liver - Plan Continue bronchodilators and oral prednisone for COPD exacerbation. No indication for antibiotics at this time. Pulmonary input appreciated. Continue IV Lasix US guided thoracentesis scheduled for Friday. Insulin sliding scale for glucose management. Continue home dose of atenolol for hypertension. Continue current dose Synthroid for hypothyroidism. Check TSH for dose adjustment as needed. Increase activity as tolerated.
[2022-08-17] MEDS ORDERED: D50W 25 GM/50 ML SYRINGE IV PRN (14:19)
[2022-08-17] MEDS ORDERED: GLUCAGON 1 MG/VIAL IM PRN (14:19)
[2022-08-17] MEDS: INSULIN -REGULAR HUMAN 50 UNIT/0.5 ML ML SQ SCH ×2 (17:04→20:12)
[2022-08-17] MEDS: atenoloL 50 MG TAB PO SCH (20:11)
[2022-08-17] MEDS: predniSONE 20 MG TAB PO SCH (20:11)
[2022-08-17] MEDS: DULERA 200/5 (MOMETASONE/FORMOTEROL) INHALER IH SCH (20:31)
[2022-08-18] MEDS: IPRATROPIUM BROM 0.5MG/2.5ML NEB SCH ×4 (01:30→19:32)
[2022-08-18 03:43] LABS: Absolute Lymphocytes (CBC) 0.4 K/uL (0.7-4.9); Hematocrit 32.3 % (39.6-49.0); Lymphocytes % 8.1 % (15.3-44.8); MPV 7.5 fL (7.6-11.3); RBC Red Blood Cell Count 2.85 M/uL (4.33-5.43)
[2022-08-18 03:48] LABS: MCV 113.1 fL (80-100)
[2022-08-18 03:59] LABS: Potassium 4.2 mmol/L (3.5-5.1); Thyroid Stimulating Hormone 1.58 uIU/mL (0.358-3.740)
[2022-08-18] MEDS: LEVOTHYROXINE SOD 0.075 MG TAB PO SCH (06:07)
[2022-08-18] MEDS: INSULIN -REGULAR HUMAN 50 UNIT/0.5 ML ML SQ SCH ×4 (07:30→21:08)
[2022-08-18] MEDS: FUROSEMIDE 40 MG/4 ML VIAL IV SCH (08:23)
[2022-08-18] MEDS: PANTOPRAZOLE 40MG TABLET PO SCH (08:23)
[2022-08-18] MEDS: DULERA 200/5 (MOMETASONE/FORMOTEROL) INHALER IH SCH ×2 (08:23→21:08)
[2022-08-18] MEDS: predniSONE 20 MG TAB PO SCH ×2 (08:23→21:08)
--- NOTE | 2022-08-18 13:11 | P.PN ---
Subjective Date of Service: 08/18/22 Chief Complaint: Shortness of breath hypoxemia Patient has no new complaint. He is still coughing intermittently. He denies any shortness of breath. He denies chest pain. Physical Examination - Vital Signs Temperature: 98.2 F Blood Pressure: 137/55 Pulse: 76 Respirations: 16 Pulse Ox (%): 97 - Physical Exam General: Alert, In no apparent distress, Oriented x3, Obese HEENT: Mucous membr. moist/pink Respiratory: Clear to auscultation bilaterally, Diminished (On the right) Cardiovascular: Regular rate/rhythm, Normal S1 S2, Edema (1+ bilateral lower extremity edema) Gastrointestinal: Normal bowel sounds, Soft and benign, Non-distended, No tenderness Musculoskeletal: No swelling Integumentary: No cyanosis Neurological: Normal strength at 5/5 x4 extr Assessment And Plan - Current Problems (Diagnosis) (1) Pleural effusion Current Visit: Yes Status: Acute (2) COPD exacerbation Current Visit: Yes Status: Acute (3) COPD with acute exacerbation Current Visit: Yes Status: Acute (4) Diabetes mellitus Onset Date: 01/22/17 Current Visit: No Status: Chronic Qualifiers: Diabetes mellitus type: type 2 Diabetes mellitus fdc insulin use: without fdc use Diabetes mellitus complication status: without complication Qualified Code(s): E11.9 - Type 2 diabetes mellitus without complications (5) Hypertension Onset Date: 01/22/17 Current Visit: No Status: Chronic Qualifiers: Hypertension type: essential hypertension Qualified Code(s): I10 - Essential (primary) hypertension (6) Hypothyroidism Onset Date: 01/22/17 Current Visit: No Status: Chronic Qualifiers: Hypothyroidism type: unspecified Qualified Code(s): E03.9 - Hypothyroidism, unspecified (7) Obesity Current Visit: No Status: Chronic Qualifiers: Obesity type: unspecified obesity type Obesity classification: adult class 3 (BMI >= 40) Body mass index: BMI 40.0-44.9 (8) Cirrhosis Current Visit: No Status: Chronic Qualifiers: Hepatic cirrhosis type: unspecified hepatic cirrhosis Ascites presence: without ascites Qualified Code(s): K74.60 - Unspecified cirrhosis of liver (9) Macrocytic anemia Current Visit: Yes Status: Chronic - Plan Continue bronchodilators and oral prednisone for COPD exacerbation. Oxygen saturation is stable on room air. Currently not hypoxic. No indication for antibiotics at this time. Pulmonary is following. Continue IV Lasix. US guided thoracentesis scheduled for Friday. Insulin sliding scale for glucose management. Continue home dose of atenolol for hypertension. Continue current dose Synthroid for hypothyroidism. TSH within normal limit. Patient with significant macrocytic anemia. Check vitamin B12 levels. Peripheral blood smear. Increase activity as tolerated.
[2022-08-18] MEDS: atenoloL 50 MG TAB PO SCH (21:07)
[2022-08-19] MEDS: IPRATROPIUM BROM 0.5MG/2.5ML NEB SCH ×4 (01:30→19:28)
[2022-08-19 04:07] LABS: Absolute Lymphocytes (CBC) 0.4 K/uL (0.7-4.9); Hematocrit 33.5 % (39.6-49.0); Lymphocytes % 11.5 % (15.3-44.8); MPV 7.4 fL (7.6-11.3); RBC Red Blood Cell Count 2.97 M/uL (4.33-5.43)
[2022-08-19 04:12] LABS: MCV 112.6 fL (80-100)
[2022-08-19 04:27] LABS: Potassium 4.7 mmol/L (3.5-5.1)
[2022-08-19] MEDS: LEVOTHYROXINE SOD 0.075 MG TAB PO SCH (05:07)
[2022-08-19] MEDS: INSULIN -REGULAR HUMAN 50 UNIT/0.5 ML ML SQ SCH ×4 (07:30→20:26)
[2022-08-19] MEDS: PANTOPRAZOLE 40MG TABLET PO SCH (08:33)
[2022-08-19] MEDS: FUROSEMIDE 40 MG/4 ML VIAL IV SCH (08:33)
[2022-08-19] MEDS: predniSONE 20 MG TAB PO SCH ×2 (08:33→20:26)
[2022-08-19] MEDS: DULERA 200/5 (MOMETASONE/FORMOTEROL) INHALER IH SCH ×2 (08:33→20:26)
[2022-08-19 11:52] LABS: Body Fluid WBC 385 /mm^3
[2022-08-19 12:05] LABS: Body Fluid Source PLEURAL
[2022-08-19 12:06] LABS: Appearance CLEAR (CLEAR); Color of fluid Yellow (COLORLESS)
--- NOTE | 2022-08-19 12:10 | RAD REPORT ---
EXAM DESCRIPTION: US - Thoracentesis w/ US Guide - 08/19/2022 10:51 am CLINICAL HISTORY: Pleural effusion. R effusion COMPARISON: No comparisons FINDINGS: Preoperative diagnosis: Right pleural effusion Post operative diagnosis: Same Conscious Sedation: None. Estimated blood loss: Minimal Specimens:A small volume of fluid was sent for requested lab studies. The patient was placed in the upright recumbent position and the right posterior chest was prepped an d draped in the usual sterile fashion. 1% Lidocaine was infiltrated into the soft tissues for local anesthesia. Under sonographic guidance, a thoracentesis needle and 6 [place] catheter was advanced in to the right pleural space. Approximately 2.2 liter yellow fluid was aspirated. Samples were sent to pathology for requested analysis. The patient tolerated the procedure without immediate complication and transferred to the floor in stable condition. IMPRESSION: Successful ultrasound-guided thoracentesis as detailed.
--- NOTE | 2022-08-19 12:39 | RAD REPORT ---
EXAM DESCRIPTION: RAD - Chest Single View - 08/19/2022 11:52 am CLINICAL HISTORY: Status Post Thorocentesis Chest pain. COMPARISON: Chest Single View dated 08/17/2022; Chest Pa And Lat (2 Views) dated 08/16/2022; Chest Sin gle View dated 01/25/2017; Chest Single View dated 01/21/2017 FINDINGS: Portable technique limits examination quality. Significant reduction in the size of the right pleural effusion. No pneumothorax. Mildly prominent No displaced fractures. IMPRESSION: No postprocedure pneumothorax seen.
--- NOTE | 2022-08-19 14:52 | P.PN ---
Subjective Date of Service: 08/19/22 Chief Complaint: Shortness of breath hypoxemia Patient has no new complaint. He denies chest pain. Status post right thoracentesis today. 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 Diabetes mellitus complication status: without complication Qualified Code(s): E11.9 - Type 2 diabetes mellitus without complications (5) Hypertension Onset Date: 01/22/17 Current Visit: No Status: Chronic Qualifiers: Hypertension type: essential hypertension Qualified Code(s): I10 - Essential (primary) hypertension (6) Hypothyroidism Onset Date: 01/22/17 Current Visit: No Status: Chronic Qualifiers: Hypothyroidism type: unspecified Qualified Code(s): E03.9 - Hypothyroidism, unspecified (7) Obesity Current Visit: No Status: Chronic Qualifiers: Obesity type: unspecified obesity type Obesity classification: adult class 3 (BMI >= 40) Body mass index: BMI 40.0-44.9 (8) Cirrhosis Current Visit: No Status: Chronic Qualifiers: Hepatic cirrhosis type: unspecified hepatic cirrhosis Ascites presence: without ascites Qualified Code(s): K74.60 - Unspecified cirrhosis of liver (9) Macrocytic anemia Current Visit: Yes Status: Chronic - Plan Continue bronchodilators and oral prednisone for COPD exacerbation. Oxygen saturation is stable on room air. Currently not hypoxic. No indication for antibiotics at this time. Pulmonary is following. Patient is on IV Lasix for pleural effusion. Status post US guided thoracentesis today. Pleural fluid fluid cell count is unremarkable, biochemistry is pending. Insulin sliding scale for glucose management. Continue home dose of atenolol for hypertension. Continue current dose Synthroid for hypothyroidism. TSH within normal limit. Patient with significant macrocytic anemia. Vitamin B12 levels and Peripheral blood smear are pending. Activity as tolerated.
--- NOTE | 2022-08-19 17:52 | P.PN ---
Date of Service: 08/20/22 Subjective: ROS: A complete review of systems was performed and is negative except as mentioned above Physical Exam: Gen: NAD, AOx3 HEENT: normal conjunctiva, sclera anicteric CV: regular rate & rhythm, + b/l lower extremity edema Pulm: non-labored respirations, clear bilaterally Abd: soft, non-tender, non-distended MSK: no contractures, no tenderness Skin: no rashes, no lesions Neuro: normal speech, normal affect, moves all extremities vitals reviewed Problem List Pleural effusion, now s/p thoracentesis acute on chronic COPD exacerbation NIDDM2 HTN Hypothyroidism ObesityCirrhosis Macrocytic anemia Continue bronchodilators and oral prednisone for COPD exacerbation. Oxygen saturation is stable on room air. Currently not hypoxic. No indication for antibiotics at this time. Status post US guided thoracentesis 08/19. Pleural fluid fluid cell count is unremarkable, biochemistry is pending. pulm following continue lasix Insulin sliding scale for glucose management. Continue home dose of atenolol for hypertension. Continue current dose Synthroid for hypothyroidism. TSH within normal limit. Patient with significant macrocytic anemia. Vitamin B12 levels and Peripheral blood smear are pending. Activity as tolerated. VTE: Code: full Dispo:
[2022-08-19] MEDS: atenoloL 50 MG TAB PO SCH (20:25)
[2022-08-20] MEDS: IPRATROPIUM BROM 0.5MG/2.5ML NEB SCH ×3 (01:40→13:44)
[2022-08-20 04:29] LABS: Absolute Lymphocytes (CBC) 0.6 K/uL (0.7-4.9); Hematocrit 34.1 % (39.6-49.0); Lymphocytes % 15.3 % (15.3-44.8); MPV 7.3 fL (7.6-11.3); RBC Red Blood Cell Count 3.03 M/uL (4.33-5.43)
[2022-08-20 04:31] LABS: MCV 112.9 fL (80-100)
[2022-08-20 04:41] LABS: Potassium 4.4 mmol/L (3.5-5.1)
[2022-08-20] MEDS: LEVOTHYROXINE SOD 0.075 MG TAB PO SCH (05:20)
[2022-08-20] MEDS: predniSONE 20 MG TAB PO SCH (08:49)
[2022-08-20] MEDS: PANTOPRAZOLE 40MG TABLET PO SCH (08:49)
[2022-08-20] MEDS: FUROSEMIDE 40 MG/4 ML VIAL IV SCH (08:50)
[2022-08-20] MEDS: DULERA 200/5 (MOMETASONE/FORMOTEROL) INHALER IH SCH (08:50)
[2022-08-20] MEDS: INSULIN -REGULAR HUMAN 50 UNIT/0.5 ML ML SQ SCH ×3 (08:50→16:04)
--- NOTE | 2022-08-20 09:31 | RAD REPORT ---
EXAM DESCRIPTION: RAD - Chest Single View - 08/20/2022 9:17 am CLINICAL HISTORY: s/p thoracentesis, f/u effusion, r/o pneumo COMPARISON: Chest Single View dated 08/19/2022; Chest Single View dated 08/17/2022; Chest Pa And Lat ( 2 Views) dated 08/16/2022; Chest Single View dated 01/25/2017; Thoracentesis w/ US Guide dated ; Thorax W/ Con dated 08/16/2022 FINDINGS: Lines: None. Lungs: Airspace disease at the right lung base again noted and presumably atelectasis. . Pleural: Increased right-sided pleural effusion which remains small. No pneumothorax. Cardiac: Similar size and configuration Mediastinum: Within normal limits. Bones: No acute fractures. Other: None IMPRESSION: Mild increased right pleural fluid compared with 08/19/2022. No pneumothorax.
[2022-08-20] MEDS ORDERED: SPIRONOLACTONE 25 MG TABLET PO SCH (11:49)
--- NOTE | 2022-08-20 11:50 | P.PN ---
Subjective Date of Service: 08/20/22 Chief Complaint: Shortness of breath hypoxemia Subjective: Improving (Improving s/p thoracentesis/shortness of breath is better) Review of Systems Unremarkable Physical Examination - Vital Signs Temperature: 98.0 F Blood Pressure: 123/49 Pulse: 61 Respirations: 14 Pulse Ox (%): 97 - Physical Exam General: Alert, In no apparent distress, Oriented x3 Respiratory: Clear to auscultation bilaterally, Diminished Cardiovascular: Regular rate/rhythm, Edema Assessment And Plan - Current Problems (Diagnosis) (1) Pleural effusion Current Visit: Yes Status: Acute Plan: Patient is doing better chest x-ray has improved s/p thoracentesis mild predomi nance of lymphocytes on the fluid no evidence of pleural fluid infection add spironolactone (2) COPD (chronic obstructive pulmonary disease) Current Visit: Yes Status: Acute Plan: Continue with bronchodilator therapy he does not take any inhalers at home DC prednisone for now patient home on Advair and need outpatient pulmonary function test Qualifiers: COPD type: unspecified COPD Qualified Code(s): J44.9 - Chronic obstructive pulmonary disease, unspecified (3) Cirrhosis of liver Current Visit: Yes Status: Acute Plan: Add spironolactone pancytopenia is probably from cirrhosis of the liver including his macrocytosis stable for discharge
[2022-08-20 14:35] VITALS: O2SAT 96
[2022-08-20] MEDS ORDERED: IPRATROPIUM BROM 0.5MG/2.5ML NEB PRN (16:00)
[2022-08-20 16:22] VITALS: BP 105/48; TEMP 98.2
--- NOTE | 2022-08-20 17:27 | EKG ---
Test Date: 2022-08-16 Test Time: 11:35:14 Block Out Machine Operator: DESIREE MEASUREMENT RESULTS: Intervals: Rate: 58 VA: 158 QRSD: 72 QT: 508 QTc: 498 [place]: P: 88 VA: 158 QRS: 72 T: 63 INTERPRETIVE STATEMENTS: Sinus bradycardia Low voltage QRS Nonspecific ST and T wave abnormality Prolonged QT Abnormal ECG Compared to ECG 01/21/2017 12:49:06 Low QRS voltage now present ST (T wave) deviation now present Prolonged QT interval now present Sinus rhythm no longer present Electronically Signed On 08-20-22 17:17:14 TOOL CRIB MANAGER by Wai Zamudio
--- NOTE | 2022-08-20 23:19 | P.DS ---
Admission Date: 08/16/22 Discharge Date: 08/20/22 Disposition: ROUTINE DISCHARGE Reason for Admission: Shortness of breath hypoxemia Consultations: Pulmonology - Dr. Chaparro Brief History of Present Illness: 72yo M, PMH: DM@, HTN, hypothyroidism, obesity, GERD, cirrhosis Presented to ED due to shortness of breath, found to have moderate-sized right- sided pleural effusion. Hospital Course: Problem List Pleural effusion, now s/p thoracentesis acute on chronic COPD exacerbation NIDDM2 HTN Hypothyroidism ObesityCirrhosis Macrocytic anemia Patient presented with shortness of breath and found to have moderate-large right pleural effusion. Pulmonology was consulted. He was treated with diuretics and underwent thoracentesis with removal of 2.2 liters of fluid. He was also empirically treated for a COPD exacerbation with inhaler, nebs, steroids. He had significant improvement of his symptoms and deemed stable for discharge home. Pleural effusion was one sided - on right, secondary to liver cirrhosis. No evidence of infection. Discharged with new prescriptions for 40mg daily lasix, 25mg spironolactone, and Advair. Follow up with PCP within 3-5 days Follow up with Dr. Chaparro, Pulmonology in 1-2 weeks. Vital Signs/Physical Exam: Temp Pulse Resp BP Pulse Ox 98.2 F 76 14 105/48 L 96 08/20/22 16:00 08/20/22 16:00 08/20/22 16:00 08/20/22 16:00 08/20/22 16:00 General: Alert, In no apparent distress, Oriented x3 HEENT: EOMI, Sclerae nonicteric Respiratory: Normal air movement, Diminished (at bases) Cardiovascular: No edema, Regular rate/rhythm Gastrointestinal: Soft and benign, No tenderness Musculoskeletal: No tenderness Integumentary: No rashes, No significant lesion Neurological: Normal speech, Normal affect Laboratory Data at Discharge: WBC 3.70 K/uL (4.3-10.9) L 08/20/22 04:02 Hgb 11.9 g/dL (13.6-17.9) L 08/20/22 04:02 Hct 34.1 % (39.6-49.0) L 08/20/22 04:02 Plt Count 94 K/uL (152-406) L 08/20/22 04:02 PT 15.2 SECONDS (9.5-12.5) H 08/16/22 15:34 INR 1.38 08/16/22 15:34 Sodium 134 mmol/L (136-145) L 08/20/22 04:02 Potassium 4.4 mmol/L (3.5-5.1) 08/20/22 04:02 BUN 32 mg/dL (7-18) H 08/20/22 04:02 Creatinine 1.26 mg/dL (0.70-1.30) 08/20/22 04:02 Glucose 187 mg/dL (74-106) H 08/20/22 04:02 Total Bilirubin 2.0 mg/dL (0.2-1.0) H 08/17/22 02:56 AST 33 U/L (15-37) 08/17/22 02:56 ALT 20 U/L (16-61) 08/17/22 02:56 Alkaline Phosphatase 122 U/L (45-117) H D 08/17/22 02:56 Cholesterol Cancelled 08/19/22 08:18 Home Medications: Levothyroxine Sodium 1 tab PO [id number] 01/22/17 Atenolol [Tenormin] 1 tab PO BEDTIME 08/16/22 Cholecalciferol (Vitamin D3) [Vitamin D3] 1,000 unit PO DAILY 08/16/22 Folic Acid 0.4 mg PO DAILY 08/16/22 Pantoprazole [Protonix Tab*] 40 mg PO DAILY 08/16/22 Fluticasone/Salmeterol [Advair 250-50 Diskus] 1 each IH BID 30 Days #60 aero 08/20/22 Furosemide [Lasix] 40 mg PO DAILY 30 Days #30 tab 08/20/22 Spironolactone [Aldactone*] 25 mg PO DAILY 30 Days #30 tab 08/20/22 New Medications: Fluticasone/Salmeterol [Advair 250-50 Diskus] 1 each IH BID 30 Days #60 aero Spironolactone [Aldactone*] 25 mg PO DAILY 30 Days #30 tab Furosemide [Lasix] 40 mg PO DAILY 30 Days #30 tab Physician Discharge Instructions: Patient presented with shortness of breath and found to have moderate-large righ t pleural effusion. Pulmonology was consulted. He was treated with diuretics and underwent thoracentesis with removal of 2.2 liters of fluid. He was also empirically treated for a COPD exacerbation with inhaler, nebs, steroids. He had significant improvement of his symptoms and deemed stable for discharge home. Pleural effusion was one sided - on right, secondary to liver cirrhosis. No evidence of infection. Discharged with new prescriptions for 40mg daily lasix, 25mg spironolactone, and Advair. Follow up with PCP within 3-5 days Follow up with [address]. Chaparro, Pulmonology in 1-2 weeks. Followup: Medardo Chaparro MD [ACTIVE - CAN ADMIT] - Neal Claros MD [Primary Care Provider] - Time spent managing pt's care (in minutes): 45
--- NOTE | 2022-08-21 06:59 | ECHO ---
HEIGHT: 6 ft 3 in WEIGHT: 316 lb 0 oz DATE OF STUDY: 08/19/[address]: Medardo Chaparro MD 2-DIMENSIONAL: YES M.MODE: YES DOPPLER: YES COLOR FLOW: YES TDS: PORTABLE: YES DEFINITY: BUBBLE STUDY: DIAGNOSIS: PROGRESSIVE DYSPNEA CARDIAC HISTORY: CATHERIZATION: NO SURGERY: NO PROSTHETIC VALVE: NO PACEMAKER: NO MEASUREMENTS (cm) DIASTOLIC (NORMALS) SYSTOLIC (NORMALS) IVSd 1.2 (0.6-1.2) LA Diam 2.8 (1.9-4.0) LVEF 60% LVIDd 4.2 (3.5-5.7) LVIDs 3.2 (2.0-3.5) %FS 25% LVPWd 1.2 (0.6-1.2) Ao Diam 2.8 (2.0-3.7) 2 DIMENSIONAL ASSESSMENT: RIGHT ATRIUM: NORMAL LEFT ATRIUM: NORMAL RIGHT VENTRICLE: NORMAL LEFT VENTRICLE: NORMAL TRICUSPID VALVE: TRACE TRICUSPID REGURGITATION MITRAL VALVE: MILD MITRAL REGURGITATION PULMONIC VALVE: NORMAL AORTIC VALVE: NORMAL PERICARDIAL EFFUSION: NONE AORTIC ROOT: NORMAL LEFT VENTRICULAR WALL MOTION: NORMAL DOPPLER/COLOR FLOW: SEE BELOW COMMENTS: 1. NORMAL LEFT VENTRICULAR EJECTION FRACTION 60-65% 2. NORMAL WALL MOTION 3. MODERATE DIASTOLIC DYSFUNCTION 4. MILD CONCENTRIC LEFT VENTRICULAR HYPERTROPHY 5. MILD MITRAL REGURGITATION TECHNOLOGIST: JOSUE BOLTON
[2022-08-23 04:40] LABS: TOTAL PROTEIN, PLEURAL FLUID 3.6 g/dL
== END 2022-08-20 17:16 | disposition home or self-care (01) | DRG 432 ==
LOC: ER 10:21 → ERHOLD 14:30 → 2ND 16:38
PROVIDERS: ADMIT Internal Medicine Sleep Medicine; ATTEND Hospitalist
PROC: 0W993ZZ Drainage of Right Pleural Cavity, Percutaneous Approach (ICD-10-PCS; principal; 2022-08-19)
DX: K74.60 Unspecified cirrhosis of liver (principal); J96.01 Acute respiratory failure with hypoxia; J90 Pleural effusion, not elsewhere classified; J44.1 Chronic obstructive pulmonary disease with (acute) exacerbation; Z68.41 Body mass index [BMI] 40.0-44.9, adult; E66.9 Obesity, unspecified; I10 Essential (primary) hypertension; M10.9 Gout, unspecified; E03.9 Hypothyroidism, unspecified; D53.9 Nutritional anemia, unspecified; E11.9 Type 2 diabetes mellitus without complications; K21.9 Gastro-esophageal reflux disease without esophagitis; Z90.49 Acquired absence of other specified parts of digestive tract; Z79.899 Other long term (current) drug therapy; Z79.890 Hormone replacement therapy; Z20.822 Contact with and (suspected) exposure to COVID-19
CPT/HCPCS: 0240U; 32555; 36415; 71045; 71046; 71260; 80048; 80053; 82607; 82945; 82947; 83615; 83880; 84157; 84311; 84443; 84484; 85025; 85610; 87015; 87102; 87116; 87205; 87206; 88108; 88305; 89050; 93005; 93306; 94640; 96374; 99285; J1815; J1940; J2920; J2930; J3430; J3535; J7512; J7605; J7613; J7644; Q9967